=== PATIENT | female | born 1995 | race Caucasian/White ===

== ENCOUNTER 2019-12-12 11:19 | Emergency (ER) | payer OTHER, SELFPAY ==
--- NOTE | 2019-12-12 11:25 | ED.FEMALEGU ---
HPI - Female Genitourinary General Chief complaint: Urogenital-Female Stated complaint: ear pain/irritation and frequency with urination Time Seen by Provider: 12/12/19 11:25 Source: patient and RN notes reviewed History of Present Illness HPI Narrative: Patient is a 24-year-old female who presents the urgent care with complaints of bilateral ear fullness and pain as well as sinus pressure and pain. Patient states that she is also had some bilateral back pain, frequency, urgency and dysuria for the last 3 days. Patient states that 3 days ago she had a low-grade fever of 100.2 Fahrenheit and was asked to leave work. Patient states that she did take Tylenol about 1 time but otherwise not used anything [id number] for her symptoms. Patient denies any upper respiratory symptoms at this time. Denies any nausea or vomiting. No other acute complaints. Patient expressed several times that her work is wanting a release for her to go back to work and that is why she came . Patient is aware that we do not give releases to work. Patient aware of the plan of care. Related Data Home Medications Medication Instructions Recorded Confirmed No Home Medications 12/12/19 12/12/19 Allergies Allergy/AdvReac Type Severity Reaction Status Date / Time No Known Allergies Allergy Unknown Verified 12/12/19 11:36 Review of Systems Review of Systems: Narrative: CONSTITUTIONAL: Denies fever, chills, or sweats. EYES: Denies visual changes, redness, or discharge. ENT: Reports of bilateral otalgia CARDIOVASCULAR: Denies chest pain, palpitations, or edema. RESPIRATORY: Denies cough or dyspnea. GASTROINTESTINAL: Denies abdominal pain, nausea, vomiting, or diarrhea. GENITOURINARY: Reports of urgency, frequency, suprapubic pressure and dysuria SKIN: Denies rash or itching. MUSCULOSKELETAL: Denies back pain, joint pain, or myalgia. NEUROLOGIC: Denies headache, numbness, or weakness. All other systems reviewed are negative, except as documented in HPI. PMFSH Comments At the time of my signature, I reviewed and agree with the nursing past medical, surgical, social, and family history. There is no relevant family history pertinent to the patient complaint. Exam Narrative: Exam Narrative: GENERAL: This is a well-nourished, well-developed patient, in no apparent distress. HEAD: normocephalic, atraumatic. EYES: PERRL. Sclera clear/white. Vision is grossly intact. EARS: External ears normal, auditory canals clear and without drainage,mild fluid noted behind right TM without otitis. bilateral TMs normal without perforation. Hearing grossly intact. NOSE: External nose normal with no obvious nasal discharge, nares without redness, no rhinorrhea. THROAT: Mucous membranes moist, posterior pharynx clear. NECK: Neck supple CARDIOVASCULAR: Regular rate and rhythm without murmurs, gallops, or rubs. RESPIRATORY: Clear to auscultation. Breath sounds equal bilaterally. No wheezes, rales, or rhonchi. GASTROINTESTINAL: Abdomen soft,mild suprapubic tenderness, nondistended. Bowel sounds are active. SKIN: warm, intact with no suspicious lesions or rash, good texture and turgor. NEURO: awake, alert, and oriented to person, place and time. There were no obvious focal neurologic abnormalities. EXTREMITIES: No clubbing, cyanosis, or edema. BACK:mild bilateral CVA tenderness Course Vital Signs Vital signs: Vital Signs Temperature 98.1 F 12/12/19 11:27 Pulse Rate 101 H 12/12/19 11:27 Respiratory Rate 20 12/12/19 11:27 Blood Pressure 139/82 12/12/19 11:27 Pulse Oximetry 99 12/12/19 11:27 Temperature 98.1 F 12/12/19 11:27 Pulse Rate 101 H 12/12/19 11:27 Respiratory Rate 20 12/12/19 11:27 Blood Pressure 139/82 12/12/19 11:27 Pulse Oximetry 99 12/12/19 11:27 Reviewed MDM - Female Genitourinary MDM Narrative Medical decision making narrative: Reviewed lab results with the patient. She is aware that urine analysis was negative. Urin
[2019-12-12 11:27] VITALS: BP 139/82; PULSE 101; RESP 20; TEMP 36.7; O2SAT 99
--- NOTE | 2019-12-12 11:41 | PC.NURSE ---
NO UC ORDERED PER PROVIDER
== END 2019-12-12 11:50 | disposition home or self-care (01) ==
PROVIDERS: Emergency Provider Nurse Practitioner Family; PCP Family Medicine
DX: H92.03 Otalgia, bilateral (principal); R30.0 Dysuria
CPT/HCPCS: 81003; 99212; G0463

== ENCOUNTER 2021-06-29 15:08 | Emergency (ER) | payer OTHER, SELFPAY ==
[2021-06-29 15:45] VITALS: BP 130/93; PULSE 108; RESP 20; TEMP 37.6; O2SAT 100
--- NOTE | 2021-06-29 16:58 | ED.URI ---
HPI - URI/Sore Throat General Chief Complaint: Upper Respiratory Infection Stated Complaint: Sore Throat Time Seen by Provider: 06/29/21 16:54 Source: patient and RN notes reviewed Mode of arrival: ambulatory Limitations: no limitations History of Present Illness HPI Narrative: 26-year-old female presents concern for sore throat, headache that started on June 26. Reports history of strep throat infections. She denies nasal congestion, rhinorrhea, body aches, chills, sweats. Denies known sick contacts. MD elicited complaint: cough and sore throat Related Data Allergies Allergy/AdvReac Type Severity Reaction Status Date / Time No Known Allergies Allergy Unknown Verified 06/29/21 15:43 Review of Systems Review of Systems: CONSTITUTIONAL: Denies malaise, chills, sweats, or fever. EYES: Denies visual changes, redness, or discharge. ENT: Denies rhinorrhea, congestion, sinus pain, otalgia. Reports sore throat. CARDIOVASCULAR: Denies chest pain, palpitations, or edema. RESPIRATORY: Reports cough. Denies dyspnea. GASTROINTESTINAL: Denies abdominal pain, nausea, vomiting, diarrhea SKIN: Denies rash or itching. MUSCULOSKELETAL: Denies myalgia. NEUROLOGIC: Reports headache. All systems reviewed & are unremarkable except as noted in HPI and below PMFSH Comments At time of signature, agree with nursing past medical, surgical, social and family history. There is no relevant family history pertinent to the presenting complaint Exam Narrative: GENERAL: Well-appearing, well-nourished, and in no acute distress. HEAD: Normocephalic EYES: PERRLA, conjunctivae clear ENT: Nares clear. Mucous membranes moist. TM pearly cook with dull light reflex bilaterally; no tragal tenderness. Oropharynx erythematous without lesions. Tonsils not enlarged and without exudate, no drooling, no hoarseness, no trismus, uvula midline. NECK: Supple. No lymphadenopathy CHEST: Clear to auscultation, breath sounds equal. No wheezing, rhonchi, rales, or stridor. No respiratory distress, speaks in full sentences. HEART: Regular rate and rhythm. No murmur heard. SKIN: Warm, dry, no rash. NEURO: Alert and oriented x3. PSYCH: Normal mood and affect Course Course Emergency Course: Patient is aware of diagnosis, understands and agrees to treatment plan. Anticipatory guidance given. Patient agrees to follow-up as directed and is aware of reasons to seek care at the emergency department. Portions of this record may have been created with voice recognition software Vital Signs Vital signs: Vital Signs Temperature 99.6 F 06/29/21 15:45 Pulse Rate 108 H 06/29/21 15:45 Respiratory Rate 20 06/29/21 15:45 Blood Pressure 130/93 H 06/29/21 15:45 Pulse Oximetry 100 06/29/21 15:45 Temperature 99.6 F 06/29/21 15:45 Pulse Rate 108 H 06/29/21 15:45 Respiratory Rate 20 06/29/21 15:45 Blood Pressure 130/93 H 06/29/21 15:45 Pulse Oximetry 100 06/29/21 15:45 Reviewed. Patient has been instructed to follow up with her primary care provider within the next week regarding her elevated blood pressure today. MDM - URI/Sore Throat MDM Narrative Medical decision making narrative: Differential diagnosis considered: Kumar virus, strep pharyngitis, allergic rhinitis, upper respiratory tract infection, sinusitis, rhinosinusitis, nasopharyngitis. viral pharyngitis, otitis media, otitis externa, pneumonia, bronchitis, viral cough syndrome, viral syndrome, and influenza. Exam findings show no acute concerns or changes; patient is non-toxic appearing and is in no distress. Patient is appropriate for outpatient treatment and follow-up. Lab Data Attestation: I reviewed the patient's lab results. Labs: Strep Screen Positive Group A Strep *(Reference Range: Negative)* Critical Care Time Critical Care Time Critical Care Time: No Discharge Plan Discharge Clinical Impression: Acute streptococcal pharyngiti
== END 2021-06-29 17:09 | disposition home or self-care (01) ==
PROVIDERS: Emergency Provider Nurse Practitioner
DX: J02.0 Streptococcal pharyngitis (principal)
CPT/HCPCS: 87880; 99213; G0463

== ENCOUNTER 2024-08-23 10:50 | Emergency (ER) | payer OTHER, SELFPAY ==
--- OUTSIDE RECORDS SUMMARY | 2024-08-23 10:56 | XMS_ITS | Encounter Summary ---
Author Organization [facility] Healthcare Address [address] [place] [address] Care Team Providers Care Card Scraper Name Role Phone Daniel Hendricks MD Primary Care Provider [phone] Reason for Visit * Reason Comments Sinus Problem Entered automaticall y based on patient selection in [employer]. 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 No 07/10/2023 Humiliation, Afraid, Rape, and Kick questionnair e Answer Date Recorded Within the last year, have y ou been afraid of your partner or ex-partner? No 07/10/2023 Within the last year, have y ou been humiliated or emotionally abused in other ways by your partner or ex-partner? No Within the last year, have y ou been kicked, hit, slapped, or otherwise physically hurt by your partner or ex-partner? No 07/10/2023 Within the last year, have y ou been raped or forced to have any kind of sexual activity by your partner or ex-partner? No 07/10/2023 Social Connection and Isolat ion Panel [NHANES] Answer Date Recorded In a typical week, how many times do you talk on the phone with family, friends, or neighbors? More than three times a week 07/10/2023 How often do you get togethe r with friends or relatives? More than three times a week 07/10/2023 How often do you attend chur or uatsdin services? Never 07/10/2023 Do you belong to any clubs o r organizations such as lutheran groups, unions, fraternal or athletic groups, or school groups? No 07/10/2023 How often do you attend meet ings of the clubs or organizations you belong to? Never 07/10/2023 Are you , , di vorced, , never , or living with a partner? Living with partner 07/10/2023 AUDIT-C Answer Date Recorded Q1: How often do you have a drink containing alc ohol? Monthly or less 07/10/2023 Q2: How many drinks containi ng alcohol do you have on a typical day when you are drinking? 1 or 2 07/10/2023 Q3: How often do you have si x or more drinks on one occasion? Less than monthly 07/10/2023 Overall Financial Resource Strain (CARDIA) Answe r Date Recorded How hard is it for you to pa y for the very basics like food, housing, medical care, and heating? Not hard at all 07/10/2023 PHQ-2 Answer Date Recorded PHQ-2 Total Score (If total score is 3 or more points, staff should administer the PHQ-9) 0 01/28/2024 [facility] Occup[facility] ional [facility] - Occupational Stress Questionnaire Answer Date Recorded Do you feel stress - tense, restless, nervous, or anxious, or unable to sleep at night because your mind is troubled all the time - these days? To some extent 07/10/2023 Exercise Vital Sign Answer Date Recorde d On average, how many days pe r week do you engage in moderate to strenuous exercise (like a brisk walk)? 7 days 07/10/2023 On average, how many minutes do you engage in exercise at this level? 20 min 07/10/2023 Hunger Vital Sign Answer Date Recorded Within the past 12 months, y ou worried that your food would run out before you got the money to buy more. Never true 07/10/19 24 Within the past 12 months, t he food you bought just didn't last and you didn't have money to get more. Never true 07/10/2023 PRAPARE - Transportation Answer Date Re corded In the past 12 months, has l ack of transportation kept you from medical appointments or from getting medications? No 03/2024 In the past 12 months, has l ack of transportation kept you from meetings, work, or from getting things needed for daily living? No 07/10/2023 Housing Stability Vital Sign Answer Jovani e Recorded In the last 12 months, was t here a time when you were not able to pay the mortgage or rent on time? No 07/10/2023 In the last 12 months, how many places have you lived? 1 07/10/2023 In the last 12 months, was t here a time when you did not have a steady place to sleep or slept in a custodial (including now)? 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 The patient-submitted questionnaire was assessed for pertinent information and the patient's problem list, medication list, and allergies were reviewed as part of the e-visit. The chart was updated to identify any changes in these areas. Assessment: No diagnosis found. Plan: The patient was given information regarding any new medication(s) prescribed, if applicable, as well as any [id number] remedies. She was given instructions regarding follow up and timeframe if symptoms worsen or don???t improve. These instructions were included in the [employer] message reply tothe patient. Patient Instructions were included in the message reply to patient. My total encounter time on 08/23/2024 was 5 minutes which was spent in the activities documented inthe note. Ronel Duffy NP TERY LABORER documented in this encounter Plan of Treatment Not on file documented as of this encounter Visit Diagnoses Not on filedocumented in this encounter Care Teams Card Scraper Relationship Specialty Start Date End [place] [address] PCP - General 10/30/21 documented as of this encounter
--- OUTSIDE RECORDS SUMMARY | 2024-08-23 10:56 | XMS_ITS | Clinical Summary ---
Author Organization [facility] Address [address] [place] [address] Care Team Providers Care General Internal Medicine Physician Name Role Phone Daniel English MD Primary Care Provider [phone] Allergies Active Allergy Reactions Criticality Noted Date Comments Amoxicillin-Pot Clavulanate Rash Medium 07/25/19 24 Clavulanate Medications busPIRone (BUSPAR) 5 mg tabletIndications :Generalized Anxiety Disorder Take 1 tablet (5 mg total) by mouth 3 (three) times a day 90 tablet 1 023 Active ipratropium-albut Sloan (DUO-NEB) 0.5-2.5 mg/3 mL nebulizer solutionIndicatio ns:Chronic Obstructive Pulmonary Disease with Bronchospasms Take 3 mL by nebulization 4 (four) times a day as needed for wheezing or shortness of breath 90 mL 11 023 Active ergocalciferol (VITAMIN D) 50,000 unit capsuleIndication s:Vitamin D deficiency Take 1 capsule (50,000 Units total) by mouth once a week 12 capsule 4 024 Active cetirizine (ZyrTEC) 10 mg tabletIndications :Chronic Idiopathic Urticaria Take 1 tablet (10 mg total) by mouth 2 (two) times a day 60 tablet 11 024 Active famotidine (PEPCID) 20 mg tabletIndications :Chronic idiopathic urticaria Take 1 tablet (20 mg total) by mouth 2 (two) times a day 60 tablet 11 024 2024 Active dicyclomine (BENTYL) 10 mg capsuleIndication s:Irritable bowel syndrome with diarrhea Take 1 capsule (10 mg total) by mouth 4 (four) times a day before meals and nightly 360 capsule 024 2024 Active promethazine-DM (PROMETHAZINE-DM) 1.25-3 mg/mL syrupIndications: Allergic Rhinitis Take 5-10 mL by mouth 4 (four) times a day as needed for cough 120 mL 024 Active fluticasone propion-salmetero L (ADVAIR DISKUS) 250-50 mcg/dose diskus inhalerIndication s:Mild intermittent reactive airway disease with wheezing with acute exacerbation Inhale 1 puff 2 (two) times a day Rinse mouth with water after use. Do not swallow. 180 each 3 024 2024 Active fluticasone propionate (FLONASE) 50 mcg/actuation nasal sprayIndications: Allergic rhinitis due to dust mite Administer 2 sprays into each nostril daily 16 g 3 024 2024 Active metFORMIN XR (GLUCOPHAGE XR) 500 mg 24 hr tablet TAKE 1 TABLET(500 MG) BY MOUTH TWICE DAILY WITH MEALS 90 tablet 1 024 Active clonazePAM (KlonoPIN) 1 mg tabletIndications :RONNI (generalized anxiety disorder) TAKE 1 TABLET(1 MG) BY MOUTH TWICE DAILY 60 tablet 2 025 Active prochlorperazine (COMPAZINE) 10 mg tablet Take 1 tablet (10 mg total) by mouth 3 (three) times a day as needed for nausea or vomiting 9 tablet 025 Active albuterol HFA (PROVENTIL HFA,VENTOLIN HFA,PROAIR HFA) 90 mcg/actuation inhalerIndication s:Mild intermittent reactive airway disease without complication INHALE 2 PUFFS BY MOUTH EVERY 6 HOURS NEEDED FOR WHEEZING OR SHORTNESS OF BREATH 18 g 025 Active diphenoxylate-atr opine (LOMOTIL) 2.5-0.025 mg per tabletIndications :diarrhea Take 2 tablets in the morning, and then one tablet with each additional stool every 8 hours for a total of 4 tablets per day. 180 tablet 3 025 Active montelukast (SINGULAIR) 10 mg tabletIndications :Mild intermittent reactive airway disease with wheezing with acute exacerbation Take 1 tablet (10 mg total) by mouth nightly 90 tablet 4 025 2025 Active ondansetron ODT (ZOFRAN-ODT) 4 mg disintegrating tablet Take 1 tablet (4 mg total) by mouth every 8 (eight) hours as needed for nausea or vomiting 20 tablet 025 Active montelukast (SINGULAIR) 10 mg tabletIndications :Mild intermittent reactive airway disease with wheezing with acute exacerbation Take 1 tablet (10 mg total) by mouth nightly 90 tablet 4 023 2024 Discontinued(R eorder) ondansetron ODT (ZOFRAN-ODT) 4 mg disintegrating tablet Take 1 tablet (4 mg total) by mouth every 8 (eight) hours as needed for nausea or vomiting 12 tablet 2 024 2024 Discontinued(T herapy completed) diphenoxylate-atr opine (LOMOTIL) 2.5-0.025 mg per tabletIndications :diarrhea Take 2 tablets in the morning, and then one tablet with each additional stool every 8 hours for a total of 4 tablets per day. 180 tablet 3 024 2024 Discontinued(R eorder) albuterol HFA (PROVENTIL HFA,VENTOLIN HFA,PROAIR HFA) 90 mcg/actuation inhalerIndication s:Mild intermittent reactive airway disease without complication INHALE 2 PUFFS BY MOUTH EVERY 6 HOURS NEEDED FOR WHEEZING OR SHORTNESS OF BREATH 18 g 025 2024 Discontinued Active Problems Problem Noted Date Diagnosed Date PCOS (polycystic ovarian syndrome) 01/18/2024 Assessment & Plan (01/18/2024 1:17 PM CDT): Recently diagnosed by OB Metformin 500 mg daily; tolerating well-takes at night Severe persistent asthma without complication Fatigue 07/10/2023 Assessment & Plan (07/10/2023 2:28 PM SALES PROJECT ENGINEER): Increased fatigue; states that she can nap for hours; can drink energy drink and go straight to sleep Reactive airway disease with wheezing 05/30/2023 Assessment & Plan (05/31/2023 12:46 PM SALES PROJECT ENGINEER): Exacerbation with wheezing Restart singulair and advair Order for nebulizer and duoneb Nebulizer treatment given in office; patient expressed relief with treatment History of asthma in childhood which required nebulizer treatments. Menses, irregular 01/27/2023 RONNI (generalized anxiety disorder) 07/25/2022 Assessment & Plan (01/18/2024 1:19 PM CDT): Chronic, well controlled Continue Klonopin 1 mg BID and BuSpar 5 mg TID PRN Rarely uses BuSpar Assessment & Plan (07/10/2023 2:33 PM SALES PROJECT ENGINEER): Stable, well controlled Continue Konopin 1 mg bid prn and BuSpar 5 mg tid prn Has not taken BuSpar regularly Assessment & Plan (05/07/2023 5:20 PM SALES PROJECT ENGINEER): Stable, generally well controlled Continue Klonopin 1 mg bid prn Add buspar 5 mg tid prn Assessment & Plan (03/07/2023 2:42 PM CDT): Stable, well controlled; patient reports she has some stressors including moving and recent loss of job; however reports some improvement given no longer and stressful work environment Continue Klonopin 1 mg b.i.d. p.r.n. for severe anxiety Continue to work on nonmedical coping mechanisms Assessment & Plan (10/06/2022 4:43 PM CDT): Can focus more at work; but no other relief through the day; has had some relief with stomach pain Has been trying to increase exercise, yoga and going on walks No current individual therapy Encouraged patient to engage with individual therapy Increase Klonopin 1 mg b.i.d. Assessment & Plan (08/31/2022 4:06 PM SALES PROJECT ENGINEER): Not well controlled; patient has been on 6 antidepressants in the past; no relief in worsening symptoms with bupropion 150 mg daily Given prior failures with SSRIs, SNRIs and atypical antidepressants; will start Klonopin 0.5 mg b.i.d. Assessment & Plan (07/25/2022 4:11 PM SALES PROJECT ENGINEER): Worsening anxiety, causing significant distress and triggering depression for patient Start bupropion 150 mg daily Irritable bowel syndrome with diarrhea 8 Assessment & Plan (01/18/2024 1:18 PM CDT): Chronic, stable, well controlled Continue Dicyclomine 10 mg QID and Lomotil on days she works Assessment & Plan (07/10/2023 2:37 PM SALES PROJECT ENGINEER): Stable, generally improving Continue dicyclomine 10 mg and Lomotil Assessment & Plan (10/06/2022 4:42 PM CDT): Mildly improving; has daily diarrhea but decreased frequency stool; patient reports fewer stomach cramps Fewer days of missed appointments Continue dicyclomine 10 mg q.i.d.; Lomotil Daily Assessment & Plan (08/31/2022 4:06 PM SALES PROJECT ENGINEER): Continues to have diarrhea; worsened today; follows with Endocrinology Continue Lomotil p.r.n. for diarrhea Encouraged patient to work towards low FODMAP diet; follow-up with Allergy immunology to evaluate for possible food allergies as exacerbations of current symptoms Assessment & Plan (07/25/2022 4:10 PM SALES PROJECT ENGINEER): Continues to have episodes of diarrhea, colonoscopy is negative for any significant disease of colonoscopy, has burning sensation stomach, hot flashes at night, waking drenched in sweat; working on low FODMAP diet Continue Bentyl 10 mg q.i.d.; pantoprazole 40 mg daily, cholesterol 1 g b.i.d., cyclobenzaprine 5 mg t.i.d. Will continue to evaluate for other causes; given hot flashes at night; may also consider urine testing for metabolites of serotonin for possible serotonin syndrome; though no evidence of any tumors If night sweats continue, would also follow-up with labs for autoimmune and inflammatory causes of night sweats Assessment & Plan (05/15/2022 10:55 AM SALES PROJECT ENGINEER): Not well controlled, worsening; patient reports increased anxiety and stress Having diarrhea, rebound per day, can spent at least 20 minutes in the bathroom evacuating bowels; watery in by M[place]onnell consistency to stool Patient has been working on some dietary changes, but continues to high fat meals; encouraged patient to work on low-fat meals given history of cholecystectomy Will start colestipol 1 g b.i.d., dicyclomine 10 mg with meals for abdominal pain and cramping Referral to GI B12 deficiency 04/01/2018 Assessment & Plan (01/18/2024 1:16 PM CDT): Has been taking OTC B12 Labs ordered Hyperglycemia 04/01/2018 Assessment & Plan (03/07/2023 2:43 PM CDT): Noticed significant hyperglycemia; blood sugar and pre diabetes range; encouraged patient continue to work on low-carbohydrate diet Hyperlipidemia 04/01/2018 Assessment & Plan (01/18/2024 1:16 PM CDT): Labs ordered Assessment & Plan (10/06/2022 4:41 PM CDT): Elevated triglycerides; encouraged patient to work on dietary changes to reduce processed sugar was Vitamin D deficiency 04/01/2018 Assessment & Plan (01/18/2024 1:17 PM CDT): Chronic Taking Vitamin D Labs ordered Class 3 severe obesity with serious comorbidity and body mass index (BMI) of 40.0 to 44.9 in adult 01/01/2018 Assessment & Plan (01/18/2024 1:18 PM CDT): Weight stable Still working on diet and exercise Assessment & Plan (07/10/2023 2:39 PM SALES PROJECT ENGINEER): Mild increase; still trying to focus on weight loss She is having increased fatigue that it is making it hard to exercise. Assessment & Plan (07/10/2023 2:38 PM SALES PROJECT ENGINEER): >>ASSESSMENT AND PLAN FOR CLASS 2 OBESITY DUE TO EXCESS CALORIES WITHOUT SERIOUS COMORBIDITY WITH BODY MASS INDEX (BMI) OF 37.0 TO 37.9 IN ADULT WRITTEN ON 03/07/2023 2:42 PM BY DANIEL ENGLISH MD Stable, improving; patient reports she is been focusing in weight loss; making dietary changes, reducing caloric intake through reducing high-calorie foods in watching portion control Patient reports regular physical activity Continue to encourage dietary and activity changes to help with weight loss Resolved Problems Problem Noted Date Diagnosed Date Resolved Date Diverticulosis 07/13/2022 01/18/2024 Diarrhea 07/13/2022 01/18/2024 Abdominal cramping 07/13/2022 4 Abdominal bloating 07/13/2022 4 Nausea and vomiting 07/13/2022 01/18/20 24 Urticaria 08/01/2021 01/18/2024 Encounters Date Type Department Care Team Description 08/23/2024 9:10 AM SALES PROJECT ENGINEER E-Visit [facility] Medical [facility] [address] [place] [phone] Ronel Duffy NP E-Visit for Sinus 08/23/2024 Patient Self-Triage [facility] [address] [place] [phone] Mychart, Generic Provider 08/20/2024 8:50 AM SALES PROJECT ENGINEER E-Visit [address] [phone] Reanna Eubanks NP E-Visit for Diarrhea 08/20/2024 Patient Self-Triage [facility] [address] [place] [phone] Mychart, Generic Provider 07/28/2024 11:00 AM SALES PROJECT ENGINEER Therapy [facility] [address] [place], [place] [phone] Yamile Schwartz LCSW RONNI (generalized anxiety disorder) [F41.1] (Primary Dx) 07/23/2024 9:30 AM SALES PROJECT ENGINEER E-Visit [address] [phone] Megan Joiner NP E-Visit for Diarrhea 07/23/2024 Patient Self-Triage [facility] [address] [place] [phone] Torsten, Generic Provider 07/07/2024 11:00 AM SALES PROJECT ENGINEER Therapy [facility] [address] [place], [place] [phone] Yamile Schwartz LCSW RONNI (generalized anxiety disorder) [F41.1] (Primary Dx) 07/04/2024 Telephone [facility] [address] [phone] Daniel English MD Prednisone Clarification 06/09/2024 Telephone [facility] [address] [phone] Zandra Bell NP 06/05/2024 11:55 AM SALES PROJECT ENGINEER Lab [facility] [address] [place] [address] PCOS (polycystic ovarian syndrome); Irregular menstrual cycle 05/26/2024 11:00 AM SALES PROJECT ENGINEER Therapy [facility] [address] [place], [place] [phone] Yamile Schwartz LCSW Anxiety and depression [F41.9, F32.A] (Primary Dx) from Last 3 Months Immunizations Immunization Administration Dates Next Due DTP 10/31/2001, 2,03/07/2001,03/07,10/25/1996,10/25/1996,1995 ,1995 Hep A, Pediatric 02/20/2006,02/20/2006 Hep A, Unspecified 02/28/2010,02/28/2010 Hep B, Adolescent or Pediatric 1,03/07/2001,1995,04/25,1995,1995 HiB 10/25/1996,199 7,1995,08/08 IPV 03/07/2001, 1,10/25/1996,10/25,1995,1995 Influenza, Quadrivalent, Spl it, Preservative Free, Intramuscular 07/20/2022 Influenza, Unspecified 03/07/2023(Deferred: Denia ent Refused) MMR 03/07/2001, 1,10/25/1996,10/25 Meningococcal MCV4P (Menactra) 2,03/20/2012,02/28/2010,02/28 Pneumococcal Polysaccharide PPV23 09/27/2023 Tdap 01/18/2017, 7,02/20/2006,02/20 Surgical History Surgery Date Site/Laterality Comments CHOLECYSTECTOMY Cholecystectomy COLONOSCOPY 07/18/2022 Medical History Medical History Date Comments Anxiety Depression Asthma Childhood GERD (gastroesophageal reflux disease) Menstrual problem Food intolerance Urticaria Allergic rhinitis Diverticulosis 07/13/2022 Family History Medical History Relation Name Comments Hyperlipidemia Father Celio gutierrez Hyperlipidemi a; Hypertension Father Celio gutierrez Hypertension; Breast cancer Father's Sister Cancer, familia ast; Lung cancer Maternal Grandfather Cancer, lung; Asthma Mother Clarisse Gutierrez Asthma; Diabetes Mother Clarisse Gutierrez Diabetes valentin itus; Hyperlipidemia Paternal Grandfather Chance gutierrez Hyper lipidemia; Relation Name Status Comments Father Celio gutierrez Father's Sister Maternal Grandfather Mother Clarisse Gutierrez Paternal Grandfather Chance gutierrez Social History Tobacco Use Types Packs/Day Years Used Date Smoking Tobacco: Never Smokeless Tobacco: Never Alcohol Use Standard Drinks/Week Comments No 0 (1 standard drink = 0.6 oz pur e alcohol) [facility] Utilities Answer Date Recorded In the past 12 months has [facility] [employer], oil, or water [employer] threatened to shut off services in your [...] How often do you attend chur or congregational services? Never 07/10/2023 Do you belong to any clubs o r organizations such as mormon groups, unions, fraternal or athletic groups, or [...] staff should administer the PHQ-9) 0 01/28/2024 [facility] [place] of Occupat ional Health - Occupational Stress [...] place to sleep or slept in a senior care (including now)? No 07/10/2023 Personal Safety Answer Date Recorded Getting School Help Needed Denies 06/16 Comments No Sex and Gender Information Value Date Recorded Sex Assigned at Not on file Legal Sex Female 1:33 PM SALES PROJECT ENGINEER Gender Identity Not on file Sexual Orientation Straight 03/09/2021 11 :40 PM CDT Occupation Industry Job Start Date Job End Date Full Stack Engineer at [employer] Not on file Not on file Not on file Obstetrics History Para Term AB IAB SAB Ectopic Multiple Livin g Live Births 0 0 0 0 0 0 0 0 0 0 0 Last Filed Vital Signs Vital Sign Reading Time Taken Comments Blood Pressure 118/72 04/25/2024 3:52 PM CDT Pulse 97 04/25/2024 3:52 PM CDT Temperature 37.1 C (98.7 F) 04/25/2024 3:52 PM CDT Respiratory Rate 16 04/25/2024 3:52 PM CDT Oxygen Saturation 97% 04/25/2024 3:52 PM CDT Inhaled Oxygen Concentration - - Weight 95.3 kg (210 lb) 04/25/2024 3:52 PM CDT Height 154.9 cm (5' 1 ) 04/25/2024 3:52 PM CDT Body Mass Index 39.68 04/25/2024 3:52 PM CDT Plan of Treatment Health Maintenance Due Date Last Done Comments Varicella Vaccines (1 of 2 - 13+ 2-dose series) 2008 Covid-19 Vaccine (3 - season) 2024 04/03/2021, 03/13/2021 Influenza Vaccine (#1) 2024 07/20/2022 Pneumococcal vaccine <65 (2 of 2 - PCV) 09/26/2024 09/27/2023 Cervical Cancer Screening 01/27/20252023, 01/23/2023, 03/10/2021, Additional history exists Depression Screening 01/27/2025 01/28/2024, 01/18/2024, 07/10/2023, Additional history exists Regular Well Visit/Exam 18-64 01/27/2025 01/28/2024, 01/18/2024, 01/23/2023, Additional history exists DTaP/Tdap/Td Vaccine (9 - Td or Tdap) 01/18/2027 01/18/2017, 01/18/2017, 02/20/2006, Additional history exists Hepatitis B Screening Completed 03/07/2001 , 03/07/2001, 1995, Additional history exists Hepatitis C Screening Completed 07/13/2022 HPV Vaccines Aged Out No longer eligi ble based on patient's age to complete this topic Procedures Procedure Name Priority Date/Time Associated Diagnosis Comments EGFR Routine 06/05/2024 11:55 AM SALES PROJECT ENGINEER PCOS (polycystic ovarian syndrome) Irregular menstrual cycle COMPREHENSIVE METABOLIC PANEL Routine 06/05/2024 11:55 AM SALES PROJECT ENGINEER PCOS (polycystic ovarian syndrome) Irregular menstrual cycle INSULIN, TOTAL Routine 06/05/2024 11:55 AM SALES PROJECT ENGINEER PCOS (polycystic ovarian syndrome) Irregular menstrual cycle DHEA-SULFATE Routine 06/05/2024 11:55 AM SALES PROJECT ENGINEER PCOS (polycystic ovarian syndrome) Irregular menstrual cycle TOTAL TESTOSTERONE Routine 06/05/2024 11 :55 AM SALES PROJECT ENGINEER PCOS (polycystic ovarian syndrome) Irregular menstrual cycle FOLLICLE STIMULATING HORMONE Routine 06/05/2024 11:55 AM SALES PROJECT ENGINEER PCOS (polycystic ovarian syndrome) Irregular menstrual cycle LUTEINIZING HORMONE (LH) Routine 06/05/2024 11:55 AM SALES PROJECT ENGINEER PCOS (polycystic ovarian syndrome) Irregular menstrual cycle PAP, REFLEX HPV Routine 01/28/2024 3:45 PM CDT Well woman exam HEPATITIS PANEL, ACUTE Routine 3 3:08 PM SALES PROJECT ENGINEER Hepatic steatosis from Last 3 Months or Most Recently Relevant to Health Maintenance Results * eGFR (06/05/2024 11:55 AM SALES PROJECT ENGINEER) eGFR >90 >=60 mL/min/1. 73 m2 Comment: Interpretive Data Reference Interval Normal >/= 90 mL/min/1.73m2 Mildly decreased* 60 - 89 mL/min/1.73m2 Mildly to moderately decreased 45 - 59 mL/min/1.73m2 Moderately to severely decreased 30 - 44 mL/min/1.73m2 Severely decreased 15 - 29 mL/min/1.73m2 Kidney Failure < 15 mL/min/1.73m2 *Relative to young adult level Estimated glomerular filtration rate is determined by the 2020 CKD-EPI equation recommended by the National Kidney Foundation (A Unifying Approach to GFR Estimation: Recommendations of the NKF-ASK Task Force on Reassessing the Inclusion of Race in Diagnosing Kidney Disease, JASN 2020). The CKD-EPI equation should not be used for patients with unstable renal function and has not been validated in children and those over 70. Current interpretive data was last reviewed 2021. Testing performed by: [facility], [id number] [place] [address], [place]., [address] Blood 06/05/2024 11:5 5 AM SALES PROJECT ENGINEER 06/05/2024 6:54 PM SALES PROJECT ENGINEER us Kristine Moura NP LAB BLOOD ORDERABLES Final Resul t Performing Organization Address [facility] Co de Phone Number [facility] (SWISHER) [address] [facility] [place] [address] * Insulin, total (06/05/2024 11:55 AM SALES PROJECT ENGINEER) Insulin 21.4 2.6 - 25.0 mcIUnit/mL Comment:Testing performed by : [facility], [address] [place] [address]., [id number] Blood 06/05/2024 11:5 5 AM SALES PROJECT ENGINEER 06/06/2024 1:00 AM SALES PROJECT ENGINEER us Kristine Moura NP LAB BLOOD ORDERABLES Final Resul t Performing Organization Address [facility] de Phone Number [facility] (SWISHER) [address] [facility] [place] [address] * DHEA-sulfate (06/05/2024 11:55 AM SALES PROJECT ENGINEER) DHEA-S 142.0 98.8 - 340.0 mcg/dL Comment:Testing performed by : [facility], [address] [place] [address], [id number] Blood 06/05/2024 11:5 5 AM SALES PROJECT ENGINEER 06/06/2024 1:00 AM SALES PROJECT ENGINEER us Kristine Moura NP LAB BLOOD ORDERABLES Final Resul t Performing Organization Address [facility] Co de Phone Number [facility] (SWISHER) [address] [facility] [place] [address] * Total testosterone (06/05/2024 11:55 AM SALES PROJECT ENGINEER) Testosterone 30 8 - 48 ng/dL Comment:Testing performed by : [facility], [address] [place] [address], [place]., [address] Blood 06/05/2024 11:5 5 AM SALES PROJECT ENGINEER 06/05/2024 6:11 PM SALES PROJECT ENGINEER us Kristine Moura NP LAB BLOOD ORDERABLES Final Resul t [facility] (SWISHER) [address] [place] [address] [place] [address] * LH (06/05/2024 11:55 AM SALES PROJECT ENGINEER) LH 9.8 IUnits/L Comment: Interpretive Data Males: Adults: 1.7 - 8.6 IUnits/L Females: Follicular: 2.4 - 12.6 IUnits/L Ovulation: 14.0 - 95.6 IUnits/L Luteal: 1.0 - 11.4 IUnits/L Postmenopausal: 7.7 - 58.5 IUnits/L Current interpretive data was last revised on 2018. Testing performed by: [facility], [address] [place] [address], [id number] Blood 06/05/2024 11:5 5 AM SALES PROJECT ENGINEER 06/06/2024 1:00 AM SALES PROJECT ENGINEER Kristine Moura NP LAB BLOOD ORDERABLES Final Resul t Performing Organization Address [facility] Co de Phone Number [facility] (SWISHER) [address] [place] [phone] * Follicle stimulating hormone (06/05/2024 11:55 AM SALES PROJECT ENGINEER) FSH 6.0 IUnits/L Comment: Interpretive Data Male: Adults: 1.5 - 12.4 IUnits/L Female: Follicular: 3.5 - 12.5 IUnits/L Ovulation: 4.7 - 21.5 IUnits/L Luteal: 1.7 - 7.7 IUnits/L Postmenopausal: 25.8 - 134.8 IUnits/L Current interpretive data was last revised 2015. Testing performed by: [facility], [address] [place] [address]., [id number] Blood 06/05/2024 11:5 5 AM SALES PROJECT ENGINEER 06/06/2024 1:00 AM SALES PROJECT ENGINEER us Krsitine Moura NP LAB BLOOD ORDERABLES Final Resul t [facility] (EULOGIO) 1 [facility] [place] [address] * (ABNORMAL) Comprehensive metabolic panel (06/05/2024 11:55 AM SALES PROJECT ENGINEER) Sodium 141 135 - 145 mmol/L Comment:Testing performed by : [address] [address] Potassium, pl 4.0 3.3 - 4.9 mmol/L [facility] (EULOGIO) Comment:Testing performed by : [address] [address] Chloride 104 97 - 110 mmol/L [facility] (EULOGIO) Comment:Testing performed by : [address], [address] CO2 26 22 - 32 mmol/L [facility] (EULOGIO) Comment:Testing performed by : [address], [address] Anion gap 11 2 - 15 mmol/L [facility] (EULOGIO) Comment:Testing performed by : [address] [address] BUN 7 6 - 25 mg/dL [facility] (EULOGIO) Comment:Testing performed by : [address], [address] Creatinine 0.51(L) 0.60 - 1.10 mg/dL [facility] (EULOGIO) Comment:Testing performed by : [address], [address] Glucose 98 70 - 199 mg/dL [facility] (EULOGIO) Comment: Interpretive Data Fasting glucose >/= 126 mg/dl is diagnostic for diabetes. Fasting is defined as no caloric intake for at least 8 hours. Fasting glucose between 100 mg/dl to 125 mg/dl is diagnostic of prediabetes. In a patient with classic symptoms of hyperglycemia or hyperglycemic crisis, a random glucose >/= 200 mg/dl is diagnostic for diabetes. In the absence of unequivocal hyperglycemia, results should be confirmed by repeat testing. The classification and Diagnosis of Diabetes Diabetes Care 2021; 46: S19-S40. Current interpretive data was last revised 2022. Testing performed by: [facility], [address] [place] [address]., [id number] Calcium 9.3 8.5 - 10.3 mg/dL [facility] ([facility]OG[facility]) Comment:Testing performed by : [address], [address] Bilirubin, total 0.2 0.1 - 1.2 mg/dL [facility] ([facility]) Comment:Testing performed by : [facility], [address] [place] [address], [address] Protein, pl 7.0 6.5 - 8.5 g/dL [facility] ([facility]) Comment:Testing performed by : [facility], [address] [place] [address], [address] Albumin 4.3 3.5 - 5.0 g/dL [facility] ([facility]) Comment:Testing performed by : [facility], [address] [place] [address], [address] Alk phos 100 40 - 130 Units/L [facility] ([facility]) Comment:Testing performed by : [facility], [address] [place] [address], [address] ALT 26 7 - 45 Units/L [facility] ([facility]) Comment:Testing performed by : [facility], [address] [place] [address], [address] AST 23 10 - 45 Units/L [facility] ([facility]) Comment:Testing performed by : [address], [address] Blood 06/05/2024 11:5 5 AM SALES PROJECT ENGINEER 06/05/2024 6:11 PM SALES PROJECT ENGINEER us Kristine Moura NP LAB BLOOD ORDERABLES Final Resul t [facility] ([facility]) 1 [facility] Department [place] [address] * Pap, reflex HPV (01/28/2024 3:45 PM CDT) Pathologist [facility] CLINICAL INFORMATION: CatglobeWaleskaSavana Carlton Comment:Routine exam LMP Mary HernandezWaleskaSavana Carlton Comment:[id number] Previous Pap Mary HernandezWaleskaSavana isaac Brandt Comment:None given Prev. Bx Mary Carlton Comment:None given SOURCE: Mary Carlton Comment:Cervix, Endocervix Pap, specimen adequacy Mary RiggsSavana isaac Brandt Comment: Satisfactory for evaluation. Endocervical/transformation zone component present. HPV interp Mary Carlton Comment: Cytology Results: Negative for intraepithelial lesion or malignancy. COMMENTS Mary HernandezArchie Carlton Comment: This Pap test has been evaluated with computer assisted technology. Rehabilitation Counselor Darrell Malhotra Comment: BKA, CT(ASCP) CT screening location: [place] [address] [address] [address] Review properties supervisor Mary Carlton Comment: MVB, CT(ASCP) CT Screening Location: [place] [address] [address] [place] [address] Comment Mary Carlton Comment: EXPLANATORY NOTE: The Pap is a screening test for cervical cancer. It is not a diagnostic test and is subject to false negative and false positive results. It is most reliable when a satisfactory sample, regularly obtained, is submitted with relevant clinical findings and history, and when the Pap result is evaluated along with historic and current clinical information. Thin prep 01/28/2024 3:45 PM CDT 01/29/2024 4:54 AM CDT Kristine Moura WATER PLANT PUMP OPERATOR LAB CYTOLOGY ORDERABLES Final Re sult [facility] Mary HernandezMary [address] [place] [address] * Hepatitis panel, acute (07/13/2022 3:08 PM SALES PROJECT ENGINEER) Hep A IgM Nonreactive Nonreactive [facility] (EULOGIO) Comment: Interpretive Data: If Hep A IgM Ab is reported as Equivocal, a new sample should be drawn in two weeks for testing. Current interpretive data was last revised on 19. Testing performed by: [facility], [address] [place] [address], [place]., [address] Hep B core IgM Nonreactive Nonreactive Cely [facility] (EULOGIO) Comment: Interpretive Data If HepB Core IgM Ab is reported as Equivocal, a new sample should be drawn in two weeks for testing. Current interpretive data was last revised on 19. Testing performed by: [address] [address] Hep C Ab Nonreactive Nonreactive [facility] (EULOGIO) Comment: Interpretive Data Nonreactive: Antibodies to HCV not detected. Does NOT exclude the possibility of recent exposure to HCV. Equivocal: Equivocal for HCV antibodies. Supplemental molecular testing will be automatically performed to determine infection status in accordance with current CDC screening recommendations. Reactive: Positive for HCV antibodies. This may represent current or past HCV infection. Supplemental molecular testing will be automatically performed to determine current infection status in accordance with current CDC screening recommendations. Interpretive data was last revised on 2019. Testing performed by: [facility], [address] [place] [address]., [address] HepBsAg Nonreactive Nonreactive [facility] (EULOGIO) Comment:Testing performed by : [address] [address] Blood 07/13/2022 3:08 PM SALES PROJECT ENGINEER 07/13/2022 8:14 PM SALES PROJECT ENGINEER Elke HER LAB MICROBIOLOGY - GENER AL ORDERABLES Final Result [facility] (EULOGIO) 1 [facility] [place] [address] from Last 3 Months or Most Recently Relevant to Health Maintenance Insurance [facility] Member Subscriber Plan / Payer (Ef fective 2021-Present) Name:Radha Gutierrez Relation to Subscriber:Self Name:Radha Gutierrez Payer ID:[id number] (NAIC) Group ID:Not on file Type:MEDICAID [id number] OTHER Address: ATTN: CLAIMS DEPT [address] [place] [phone] Advance Directives For more information, please contact: [phone] * Full Code (Latest Code Status on File) Date Activated Date Inactivated Comments 08/29/2022 12:04 PM 08/29/2022 7:21 PM * Full Code Date Activated Date Inactivated Comments 08/29/2022 12:04 PM 08/29/2022 12:04 PM * Full Code Date Activated Date Inactivated Comments 07/18/2022 12:00 PM 07/18/2022 7:37 PM * Full Code Date Activated Date Inactivated Comments 07/18/2022 11:59 AM 07/18/2022 11:59 AM Care Teams General Internal Medicine Physician Relationship Specialty Start Date End Date Daniel English MD [address] [place] [address] PCP - General 10/30/21
--- OUTSIDE RECORDS SUMMARY | 2024-08-23 10:56 | XMS_ITS | Encounter Summary ---
Author Organization [facility] Healthcare Address [address] [place] [address] Care Team Providers Care Barrel Rifler Button Name Role Phone Daniel Hendricks MD Primary Care Provider [phone] Encounter Details Date Type Department Care Team (Late st Contact Info) Description 08/23/2024 Patient Self-Triage [facility] HealthCare/ Physicians [address] [place] [address] [place], [facility] Provider [address] [place], [place] [id number] Social History Tobacco Use Types Packs/Day Years Used Date Smoking Tobacco: Never Smokeless Tobacco: Never Alcohol Use Standard Drinks/Week Comments No 0 (1 standard drink = 0.6 oz pur e alcohol) [facility] Utilities Answer Date Recorded In the past 12 months has e [facility], gas, oil, or water echoecho threatened to shut off services in your [...] 07/10/2023 How often do you attend chur ch or zoroastrianism services? Never 07/10/2023 Do you belong to any clubs o r organizations such as zoroastrianism groups, unions, fraternal or athletic groups, or [...] staff should administer the PHQ-9) 0 01/28/2024 [facility] of Occupat ional [facility] - Occupational Stress Questionnaire Answer Date Recorded [...] place to sleep or slept in a halfway (including now)? 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
--- OUTSIDE RECORDS SUMMARY | 2024-08-23 10:56 | XMS_ITS | Referral Summary ---
Author Organization [facility] Address [address] [place] [address] Care Team Providers Care Heel Stiffener Name Role Phone Daniel English MD Primary Care Provider [phone] Encounters Date Type Department Care Team Description 08/23/2024 9:10 AM REGIONAL DIRECTOR E-Visit [address] [address] Ronel Duffy NP E-Visit for Sinus 08/23/2024 Patient Self-Triage [facility]/ Physicians [address] [place] [address] Mychart, Generic Provider 08/20/2024 8:50 AM REGIONAL DIRECTOR E-Visit [address] [address] Reanna Eubanks NP E-Visit for Diarrhea 08/20/2024 Patient Self-Triage [facility]/ Physicians [address] [place] [address] Mychart, Generic Provider 07/28/2024 11:00 AM REGIONAL DIRECTOR Therapy [facility] [address] [place], [place] [phone] Yamile Schwartz LCSW RONNI (generalized anxiety disorder) [F41.1] (Primary Dx) 07/23/2024 9:30 AM REGIONAL DIRECTOR E-Visit [address] [address] Megan Joiner NP E-Visit for Diarrhea 07/23/2024 Patient Self-Triage [facility] [address] [place] [address] Mychart, Generic Provider 07/07/2024 11:00 AM REGIONAL DIRECTOR Therapy [facility] [address] [place] [address] Yamile Schwartz LCSW RONNI (generalized anxiety disorder) [F41.1] (Primary Dx) 07/04/2024 Telephone [facility] [address] [address] Daniel English MD Prednisone Clarification 06/09/2024 Telephone [facility] [address] [address] Zandra Bell NP 06/05/2024 11:55 AM REGIONAL DIRECTOR Lab [facility] [address] [place] [phone] PCOS (polycystic ovarian syndrome); Irregular menstrual cycle 05/26/2024 11:00 AM REGIONAL DIRECTOR Therapy [facility] [address] [place] [address] Yamile Schwartz LCSW Anxiety and depression [F41.9, F32.A] (Primary Dx) from Last 3 Months Allergies Active Allergy Reactions Criticality Noted Date [...] mouth once a week 12 capsule 4 Active cetirizine (ZyrTEC) 10 mg tabletIndications :Chronic Idiopathic Urticaria Take 1 tablet (10 mg total) by mouth 2 (two) times a day 60 tablet 11 Active famotidine (PEPCID) 20 mg tabletIndications :Chronic [...] day as needed for cough 120 mL Active fluticasone propion-salmetero L (ADVAIR DISKUS) 250-50 [...] TWICE DAILY WITH MEALS 90 tablet 1 Active clonazePAM (KlonoPIN) 1 mg tabletIndications :RONNI (generalized anxiety disorder) TAKE 1 TABLET(1 MG) BY MOUTH TWICE DAILY 60 tablet 2 Active prochlorperazine (COMPAZINE) 10 mg tablet Take 1 tablet (10 mg total) by mouth 3 (three) times a day as needed for nausea or vomiting 9 tablet Active albuterol HFA (PROVENTIL HFA,VENTOLIN HFA,PROAIR HFA) [...] 07/10/2023 Assessment & Plan (07/10/2023 2:28 PM REGIONAL DIRECTOR): Increased fatigue; states that she can nap for hours; can drink energy drink and go straight to sleep Reactive airway disease with wheezing 05/30/2023 Assessment & Plan (05/31/2023 12:46 PM REGIONAL DIRECTOR): Exacerbation with wheezing Restart singulair and advair [...] BuSpar Assessment & Plan (07/10/2023 2:33 PM REGIONAL DIRECTOR): Stable, well controlled Continue Konopin 1 mg bid prn and BuSpar 5 mg tid prn Has not taken BuSpar regularly Assessment & Plan (05/07/2023 5:20 PM REGIONAL DIRECTOR): Stable, generally well controlled Continue Klonopin 1 [...] b.i.d. Assessment & Plan (08/31/2022 4:06 PM REGIONAL DIRECTOR): Not well controlled; patient has been on 6 antidepressants in the past; no relief in worsening symptoms with bupropion 150 mg daily Given prior failures with SSRIs, SNRIs and atypical antidepressants; will start Klonopin 0.5 mg b.i.d. Assessment & Plan (07/25/2022 4:11 PM REGIONAL DIRECTOR): Worsening anxiety, causing significant distress and triggering depression for patient Start bupropion 150 mg daily Irritable bowel syndrome with diarrhea 8 Assessment & Plan (01/18/2024 1:18 PM CDT): Chronic, stable, well controlled Continue Dicyclomine 10 mg QID and Lomotil on days she works Assessment & Plan (07/10/2023 2:37 PM REGIONAL DIRECTOR): Stable, generally improving Continue dicyclomine 10 mg and Lomotil Assessment & Plan (10/06/2022 4:42 PM CDT): Mildly improving; has daily diarrhea but decreased frequency stool; patient reports fewer stomach cramps Fewer days of missed appointments Continue dicyclomine 10 mg q.i.d.; Lomotil Daily Assessment & Plan (08/31/2022 4:06 PM REGIONAL DIRECTOR): Continues to have diarrhea; worsened today; follows with Endocrinology Continue Lomotil p.r.n. for diarrhea Encouraged patient to work towards low FODMAP diet; follow-up with Allergy immunology to evaluate for possible food allergies as exacerbations of current symptoms Assessment & Plan (07/25/2022 4:10 PM REGIONAL DIRECTOR): Continues to have episodes of diarrhea, colonoscopy [...] sweats Assessment & Plan (05/15/2022 10:55 AM REGIONAL DIRECTOR): Not well controlled, worsening; patient reports increased anxiety and stress Having diarrhea, rebound per day, can spent at least 20 minutes in the bathroom evacuating bowels; watery in by Jayesh tam to stool Patient has been working on [...] exercise Assessment & Plan (07/10/2023 2:39 PM REGIONAL DIRECTOR): Mild increase; still trying to focus on weight loss She is having increased fatigue that it is making it hard to exercise. Assessment & Plan (07/10/2023 2:38 PM REGIONAL DIRECTOR): >>ASSESSMENT AND PLAN FOR CLASS 2 OBESITY [...] vomiting 07/13/2022 01/18/20 24 Urticaria 08/01/2021 01/18/2024 Immunizations Immunization Administration Dates Next Due DTP 10/31/2001, 2,03/07/2001,03/07,10/25/1996,10/25/1996,1995 ,1995 Hep A, Pediatric 02/20/2006,02/20/2006 Hep A, Unspecified 02/28/2010,02/28/2010 Hep B, Adolescent or Pediatric 1,03/07/2001,1995,04/25,1995,1995 HiB 10/25/1996, 7,1995,08/08 IPV 03/07/2001, 1,10/25/1996,10/25,1995,1995 Influenza, Quadrivalent, Spl it, Preservative Free, Intramuscular 07/20/2022 Influenza, Unspecified 03/07/2023(Deferred: Denia ent Refused) MMR 03/07/2001, 1,10/25/1996,10/25 Meningococcal MCV4P (Menactra) 2,03/20/2012,02/28/2010,02/28 Pneumococcal Polysaccharide PPV23 09/27/2023 Tdap 01/18/2017, 7,02/20/2006,02/20 Social History Tobacco Use Types Packs/Day Years Used Date Smoking Tobacco: Never Smokeless Tobacco: Never Alcohol Use Standard Drinks/Week Comments No 0 (1 standard drink = 0.6 oz pur e alcohol) [facility] Active DSPities Answer Date Recorded In the past 12 months has [employer], gas, oil, or water [employer] threatened to shut off services in your [...] week 07/10/2023 How often do you attend [facility] or christianity services? Never 07/10/2023 Do you belong to any clubs o r organizations such as confucianist groups, unions, fraternal or athletic groups, or [...] staff should administer the PHQ-9) 0 01/28/2024 [facility] - Occupational Stress Questionnaire Answer Date [...] place to sleep or slept in a penitentiary (including now)? 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 Not on file Not on file Last Filed Vital Signs Vital Sign Reading [...] 04/25/2024 3:52 PM CDT Plan of Treatment Not on file Procedures Procedure Name Priority Date/Time Associated Diagnosis Comments EGFR Routine 06/05/2024 11:55 AM REGIONAL DIRECTOR PCOS (polycystic ovarian syndrome) Irregular menstrual cycle COMPREHENSIVE METABOLIC PANEL Routine 06/05/2024 11:55 AM REGIONAL DIRECTOR PCOS (polycystic ovarian syndrome) Irregular menstrual cycle INSULIN, TOTAL Routine 06/05/2024 11:55 AM REGIONAL DIRECTOR PCOS (polycystic ovarian syndrome) Irregular menstrual cycle DHEA-SULFATE Routine 06/05/2024 11:55 AM REGIONAL DIRECTOR PCOS (polycystic ovarian syndrome) Irregular menstrual cycle TOTAL TESTOSTERONE Routine 06/05/2024 11 :55 AM REGIONAL DIRECTOR PCOS (polycystic ovarian syndrome) Irregular menstrual cycle FOLLICLE STIMULATING HORMONE Routine 06/05/2024 11:55 AM REGIONAL DIRECTOR PCOS (polycystic ovarian syndrome) Irregular menstrual cycle LUTEINIZING HORMONE (LH) Routine 06/05/2024 11:55 AM REGIONAL DIRECTOR PCOS (polycystic ovarian syndrome) Irregular menstrual cycle PAP, REFLEX HPV Routine 01/28/2024 3:45 PM CDT Well woman exam HEPATITIS PANEL, ACUTE Routine 3:08 PM REGIONAL DIRECTOR Hepatic steatosis from Last 3 Months or Most Recently Relevant to Health Maintenance Results * eGFR (06/05/2024 11:55 AM REGIONAL DIRECTOR) eGFR >90 >=60 mL/min/1. 73 m2 Comment: [...] was last reviewed 2021. Testing performed by: [facility], [address] [place] [address], [place]., [address] Blood 06/05/2024 11:5 5 AM REGIONAL DIRECTOR 06/05/2024 6:54 PM REGIONAL DIRECTOR us Kristine Moura NP LAB BLOOD ORDERABLES Final Resul t Performing Organization Address City/[facility]/ZIP Co de Phone Number CHERYL BRANTLEY ([place]) [address] [facility] [place] [address] * Insulin, total (06/05/2024 11:55 AM REGIONAL DIRECTOR) Insulin 21.4 2.6 - 25.0 mcIUnit/mL Comment:Testing performed by : [facility], [address] [place] [address], [id number] Blood 06/05/2024 11:5 5 AM REGIONAL DIRECTOR 06/06/2024 1:00 AM REGIONAL DIRECTOR us Kristine Moura NP LAB BLOOD ORDERABLES Final Resul t Performing Organization Address [facility] Co de Phone Number CHERYL BRANTLEY ([place]) [address] [facility] [place] [address] * DHEA-sulfate (06/05/2024 11:55 AM REGIONAL DIRECTOR) DHEA-S 142.0 98.8 - 340.0 mcg/dL Comment:Testing performed by : [facility], [address] [place] [address], [id number] Blood 06/05/2024 11:5 5 AM REGIONAL DIRECTOR 06/06/2024 1:00 AM REGIONAL DIRECTOR us Kristine Moura NP LAB BLOOD ORDERABLES Final Resul t Performing Organization Address City/[facility]/ZIP Co de Phone Number CHERYL BRANTLEY ([place]) [address] [facility] [place] [address] * Total testosterone (06/05/2024 11:55 AM REGIONAL DIRECTOR) Testosterone 30 8 - 48 ng/dL Comment:Testing performed by : [facility], [address] [place] [address], [place]., [address] Blood 06/05/2024 11:5 5 AM REGIONAL DIRECTOR 06/05/2024 6:11 PM REGIONAL DIRECTOR us Kristine Moura NP LAB BLOOD ORDERABLES Final Resul t Performing Organization Address City/[facility] Co de Phone Number CHERYL BRANTLEY ([place]) [address] [place] [address] * LH (06/05/2024 11:55 AM REGIONAL DIRECTOR) LH 9.8 IUnits/L Comment: Interpretive Data Males: Adults: 1.7 - 8.6 IUnits/L Females: Follicular: 2.4 - 12.6 IUnits/L Ovulation: 14.0 - 95.6 IUnits/L Luteal: 1.0 - 11.4 IUnits/L Postmenopausal: 7.7 - 58.5 IUnits/L Current interpretive data was last revised on 2018. Testing performed by: [facility], [address] [place] [address], [id number] Blood 06/05/2024 11:5 5 AM REGIONAL DIRECTOR 06/06/2024 1:00 AM REGIONAL DIRECTOR us Kristine Moura NP LAB BLOOD ORDERABLES Final Resul t Performing Organization Address [facility] [[email or web address]] de Phone Number CHERYL BRANTLEY ([place]) [address] [place] [address] * Follicle stimulating hormone (06/05/2024 11:55 AM REGIONAL DIRECTOR) FSH 6.0 IUnits/L Comment: Interpretive Data Male: Adults: 1.5 - 12.4 IUnits/L Female: Follicular: 3.5 - 12.5 IUnits/L Ovulation: 4.7 - 21.5 IUnits/L Luteal: 1.7 - 7.7 IUnits/L Postmenopausal: 25.8 - 134.8 IUnits/L Current interpretive data was last revised 2015. Testing performed by: [facility], [address] [facility], [place]., [address] Blood 06/05/2024 11:5 5 AM REGIONAL DIRECTOR 06/06/2024 1:00 AM REGIONAL DIRECTOR us Kristine Moura NP LAB BLOOD ORDERABLES Final Resul t CHERYL [facility] ([place]) 1 [facility] [place] [address] * (ABNORMAL) Comprehensive metabolic panel (06/05/2024 11:55 AM REGIONAL DIRECTOR) Sodium 141 135 - 145 mmol/L Comment:Testing performed by : [facility], [address] [place] [address], [address] Potassium, pl 4.0 3.3 - 4.9 mmol/L [facility] ([place]) Comment:Testing performed by : [facility], [address] [place] [address], [address] Chloride 104 97 - 110 mmol/L [facility] ([place]) Comment:Testing performed by : [facility], [address] [place] [address], [address] CO2 26 22 - 32 mmol/L [facility] ([place]) Comment:Testing performed by : [address], [address] Anion gap 11 2 - 15 mmol/L [facility] ([place]) Comment:Testing performed by : [address], [address] BUN 7 6 - 25 mg/dL [facility] ([place]) Comment:Testing performed by : [address], [address] Creatinine 0.51(L) 0.60 - 1.10 mg/dL [facility] ([place]) Comment:Testing performed by : [address], [address] Glucose 98 70 - 199 mg/dL BRADNER [...] classification and Diagnosis of Diabetes Diabetes Care 202; 46: S19-S40. Current interpretive data was last revised 2022. Testing performed by: [facility], [address] [place] [address]., [address] Calcium 9.3 8.5 - 10.3 mg/dL [facility] ([place]) Comment:Testing performed by : [address] [address] Bilirubin, total 0.2 0.1 - 1.2 mg/dL [facility] ([place]) Comment:Testing performed by : [address], [address] Protein, pl 7.0 6.5 - 8.5 g/dL [facility] ([place]) Comment:Testing performed by : [address], [address] Albumin 4.3 3.5 - 5.0 g/dL [facility] ([place]) Comment:Testing performed by : [address], [address] Alk phos 100 40 - 130 Units/L [facility] ([place]) Comment:Testing performed by : [address], [address] ALT 26 7 - 45 Units/L [facility] ([place]) Comment:Testing performed by : [address], [address] AST 23 10 - 45 Units/L [facility] ([place]) Comment:Testing performed by : [address], [address] Blood 06/05/2024 11:5 5 AM REGIONAL DIRECTOR 06/05/2024 6:11 PM REGIONAL DIRECTOR us Kristine Moura NP LAB BLOOD ORDERABLES Final Resul t [facility] ([place]) 1 [facility] Department [place] [address] * Pap, reflex HPV (01/28/2024 3:45 PM CDT) CLINICAL INFORMATION: Amy HernandezArchie Carlton Comment:Routine exam LMP Amy HernandezArchie Carlton Comment:[id number] Previous Pap Amy Carlton Comment:None given Prev. Bx Amy Carlton Comment:None given SOURCE: Amy Carlton Comment:Cervix, Endocervix Pap, specimen adequacy Amy Carlton Comment: Satisfactory for evaluation. Endocervical/transformation zone component present. HPV interp Amy Carlton Comment: Cytology Results: Negative for intraepithelial lesion or malignancy. COMMENTS Amy Carlton Comment: This Pap test has been evaluated with computer assisted technology. Stave Grader Darrell Malhotra Comment: BKA, CT(ASCP) CT screening location: [place] [address] Administration PATRICK Whipple [address] Review labour market economist Amy Carlton Comment: MVB, CT(ASCP) CT Screening Location: [place] [address] Administration PATRICK Whipple [address] Comment Amy Carlton Comment: EXPLANATORY NOTE: The Pap is [...] CDT 01/29/2024 4:54 AM CDT Kristine Moura SQL SSRS DEVELOPER LAB CYTOLOGY ORDERABLES Final Re sult AMY Hernandez [employer] [address] Administration PATRICK Chopra [address] * Hepatitis panel, acute (07/13/2022 3:08 PM REGIONAL DIRECTOR) Hep A IgM Nonreactive Nonreactive [facility] ([place]) Comment: Interpretive Data: If Hep A IgM Ab is reported as Equivocal, a new sample should be drawn in two weeks for testing. Current interpretive data was last revised on 19. Testing performed by: [facility], [address] [place] [address]., [id number] Hep B core IgM Nonreactive Nonreactive C FRANKIE BRANTLEY ([place]) Comment: Interpretive Data If HepB Core IgM Ab is reported as Equivocal, a new sample should be drawn in two weeks for testing. Current interpretive data was last revised on 19. Testing performed by: [facility], [address] [place] [address]., [address] Hep C Ab Nonreactive Nonreactive CHERYL BRANTLEY [...] last revised on 2019. Testing performed by: [facility], [address] [place] [address]., [address] HepBsAg Nonreactive Nonreactive CHERYL BRANTLEY ([place]) Comment:Testing performed by : [facility], [address] [place] [address]., [id number] Blood 07/13/2022 3:08 PM REGIONAL DIRECTOR 07/13/2022 8:14 PM REGIONAL DIRECTOR Elke HER LAB MICROBIOLOGY - GENER AL ORDERABLES Final Result CHERYL BRANTLEY ([place]) 1 [facility] [place] [address] from Last 3 Months or Most Recently Relevant to Health Maintenance Insurance [facility] Member Subscriber Plan / Payer (Ef fective 2021-Present) Name:Radha Gutierrez Relation to Subscriber:Self Name:Radha Gutierrez Payer ID:[id number] (NAIC) Group ID:Not on file Type:MEDICAID [id number] OTHER Address: ATTN: CLAIMS DEPT [address] [place] [id number] Advance Directives For more information, please contact: [phone] * Full Code (Latest Code Status on File) Date Activated Date Inactivated Comments 08/29/2022 12:04 PM 08/29/2022 7:21 PM * Full Code Date Activated Date Inactivated Comments 08/29/2022 12:04 PM 08/29/2022 12:04 PM * Full Code Date Activated Date Inactivated Comments 07/18/2022 12:00 PM 07/18/2022 7:37 PM * Full Code Date Activated Date Inactivated Comments 07/18/2022 11:59 AM 07/18/2022 11:59 AM Care Teams Heel Stiffener Relationship Specialty Start Date End Date Daniel English MD [address] [place] [address] PCP - General 10/30/21
--- OUTSIDE RECORDS SUMMARY | 2024-08-23 10:56 | XMS_ITS | Clinical Summary ---
Author Organization [facility] Address [address], [address] [address] Phone Care Team Providers Care Property Management Assistant Name Role Phone Marcia Johnson Kavin HOTEL DINING ROOM CASHIER, HAMMERER Unavailable [phone] Allergies No known active allergies Medications Norethindrone Acet-Ethinyl Est 1-20 MG-MCG Tablet Take by mouth. 8 Active venlafaxine (EFFEXOR-XR) 75 MG CAPSULE SR 24 HRIndications:A nxiety and depression Take 1 Cap by mouth daily. 30 Cap 1 9 Active Additional Information Patient not taking.Reported on 06/05/2019 LORazepam (ATIVAN) 0.5 MG TabletIndicatio ns:Anxiety and depression Take 1 Tab by mouth every 8 hours as needed for Anxiety. 30 Tab 9 Active Additional Information Patient not taking.Reported on 06/05/2019 ondansetron (ZOFRAN-ODT) 4 MG TABLET DISPERSIBLEIndi cations:Nausea Take 1 Tab by mouth every 8 hours as needed for Nausea - 1st line. 10 Tab 9 Active Active Problems Problem Noted Date Diagnosed Date Irritable bowel syndrome with diarrhea 8 Vitamin D deficiency 04/01/2018 B12 deficiency 04/01/2018 Hyperlipidemia 04/01/2018 Hyperglycemia 04/01/2018 Encounter for wellness examination (Adult) 01/01 Obesity (BMI 30-39.9) 01/01/2018 Hives 01/01/2018 Immunizations Immunization Administration Dates Next Due DTP Vaccine 10/31/2001, 1,10/25/1996,08/08 Hepatitis A Vaccine, Pediatric/adolescent, 2 Dose Schedule 02/20/2006 Hepatitis A Vaccine,unspecif ied Formulation 02/28/2010 Hepatitis B Vaccine, Pediatric/adolescent 03/07/2001,1995,1995 Hib Vaccine,unspecified Formulation 10/25/1996,0 1995 Inactivated Polio Vaccine 03/07/2001,10/25/1996, 1995 MMR Vaccine 03/07/2001,10/25/1996 Meningococcal Vaccine 03/20/2012,02/28/2010 TDAP Vaccine 01/18/2017,02/20/2006 Family History Medical History Relation Name Comments No Known Problems Brother Celio High Cholesterol Father No Known Problems Maternal Aunt Bhanu Diabetes Mother Relation Name Status Comments Brother Celio Alive Father Alive Maternal Aunt Bhanu Alive Mother Alive Social History Tobacco Use Types Packs/Day Years Used Date Smoking Tobacco: Never Smokeless Tobacco: Never Tobacco Cessation:Counseling Given: Yes Alcohol Use Standard Drinks/Week Comments No 0 (1 standard drink = 0.6 oz pur e alcohol) PHQ-2 Answer Date Recorded PHQ-2 Score 0 03/05/2019 Comments No Sex and Gender Information Value Date Recorded Sex Assigned at Not on file Legal Sex Female 9:58 PM CDT Gender Identity Not on file Sexual Orientation Not on file Last Filed Vital Signs Vital Sign Reading Time Taken Comments Blood Pressure 108/66 06/05/2019 3:24 PM [employer] Pulse 74 06/05/2019 3:24 PM [employer] Temperature 37.1 C (98.7 F) 06/05/2019 3:24 PM [employer] Respiratory Rate 16 03/28/2019 3:33 PM CDT Oxygen Saturation 98% 06/05/2019 3:24 PM [employer] Inhaled Oxygen Concentration - - Weight 83 kg (183 lb) 06/05/2019 3:24 PM [employer] Height 157.5 cm (5' 2 ) 03/28/2019 3:33 PM CDT Body Mass Index 33.47 03/28/2019 3:33 PM CDT Plan of Treatment Health Maintenance Due Date Last Done Comments Hepatitis C Virus (HCV) Screening 1995 Pap Smear 2016 Influenza Immunization (#1) 2024 SARS-COV-2 Immunization ( season) 2024 04/03/2021, 03/13/2021 DTaP/Tdap/Td Immunization (7 - Td or Tdap) 01/18/2027 01/18/2017, 02/20/2006, 10/31/2001, Additional history exists Respiratory Syncytial Virus (RSV) Immunization (Adult) (1 - 1-dose 75+ series) 2070 Hepatitis B Immunization Completed 001, 1995, 1995 Meningococcal Immunization (ACWY) Completed 03/20/2012, 02/28/2010 Pneumococcal Immunization Combined Aged Out No longer eligible based on patient's age to complete this topic Rotavirus Immunization Aged Out No lo nger eligible based on patient's age to complete this topic Insurance MEDICAID [employer] Care Teams Property Management Assistant Relationship Specialty Start Date End Date Marcia Johnson, HOTEL DINING ROOM CASHIER, HAMMERER Certified Nurse Practitioner 04/01/18
[2024-08-23 11:00] VITALS: BP 121/78; PULSE 115; RESP 20; TEMP 37.3; O2SAT 97
[2024-08-23 11:22] LABS: EDCOVIDSCREEN Negative (Negative); EDINFLUASCREEN Positive (Negative); EDINFLUBSCREEN Negative (Negative)
--- NOTE | 2024-08-23 11:42 | ED_ITS ---
HPI - General Adult General Chief complaint: Upper Respiratory Infection Stated complaint: cough,fever,chills Source: patient Mode of arrival: ambulatory Limitations: no limitations History of Present Illness HPI narrative: Pt presents for evaluation of sick symptoms for the past three days. Symptoms include fever, headache, generalized body aches, sore throat, sinus congestion cough wheezing, nausea, vomiting, diarrhea. She has been exposed to a few individuals who have influenza. She has tried tylenol, ibuprofen, dayquil and nyquil for her symptoms. She does not smoke. She has an underlying history of asthma. Related Data Allergies Allergy/AdvReac Type Severity Reaction Status Date / Time amoxicillin (From Augmentin) Allergy Unknown Unknown Verified 08/23/24 11:08 clavulanic acid (From Allergy Unknown Unknown Verified 08/23/24 11:08 Augmentin) Review of Systems Review of Systems: CONSTITUTIONAL: Reports fever. EYES: Denies visual changes, redness, or discharge. ENT: Reports sinus congestion and sore throat. CARDIOVASCULAR: Denies chest pain, palpitations, or edema. RESPIRATORY: Reports cough wheezing. GASTROINTESTINAL: Reports nausea, vomiting, diarrhea. Denies abdominal pain. GENITOURINARY: Denies dysuria or hematuria. SKIN: Denies rash or itching. MUSCULOSKELETAL: Reports generalized body aches. NEUROLOGIC: Reports headache. Denies numbness, dizziness, or weakness. PSYCHIATRIC: Denies anxiety or depression. PMFSH Past Medical History Medical History Asthma Surgical History Surgical History History of cholecystectomy Family History Family History Mother Family history non-contributory Social History Social History Smoking status: Never smoker Living arrangements: with family Gender identity (if verbalized by the patient): Female Spiritual care concerns: No Exam Narrative: GENERAL: Well-appearing, well-nourished, and in no acute distress. HEAD: Normocephalic, atraumatic. EYES: PERRLA and EOMI. ENT: Nares clear, no rhinorrhea or epistaxis. Mucous membranes moist. Oropharynx without tonsillar hypertrophy exudate or other lesions. Bilateral TMs pearly cook nonbulging NECK: Supple. No adenopathy or masses. No carotid bruits or JVD CHEST: Mild wheezing in RUL. Cough present on exam. HEART: Regular rate and rhythm. No murmur heard. Normal peripheral pulses. ABDOMEN: Soft, nontender, nondistended, normal active bowel sounds. EXTREMITIES: Normal range of motion. No edema. SKIN: Warm, dry, no rash. NEURO: No focal deficits. Alert and oriented x3. PSYCH: Normal mood and affect. Course Course Emergency Course: This is a 29-year-old female who presented for evaluation of sick symptoms. Influenza A positive. She has wheezing on exam. Will discharge with Tamiflu and prednisone. Increase hydration. [id number] agents for symptom management. Follow up with primary provider. Go to the ER for worsening symptoms. Pt in agreement with plan of care. Level of Care: Express Care Visit Vital Signs Vital signs: Vital Signs Temperature 37.3 C 08/23/24 11:00 Pulse Rate 115 H 08/23/24 11:00 Respiratory Rate 20 08/23/24 11:00 Blood Pressure 121/78 08/23/24 11:00 Pulse Oximetry 97 08/23/24 11:00 Oxygen Delivery Room Air 08/23/24 11:00 Temperature 37.3 C 08/23/24 11:00 Pulse Rate 115 H 08/23/24 11:00 Respiratory Rate 20 08/23/24 11:00 Blood Pressure 121/78 08/23/24 11:00 Pulse Oximetry 97 08/23/24 11:00 Oxygen Delivery Room Air 08/23/24 11:00 Medical Decision Making Vital Signs Vital Signs: Vital Signs Temperature 37.3 C 08/23/24 11:00 Pulse Rate 115 H 08/23/24 11:00 Respiratory Rate 20 08/23/24 11:00 Blood Pressure 121/78 08/23/24 11:00 Pulse Oximetry 97 08/23/24 11:00 Oxygen Delivery Room Air 08/23/24 11:00 Temperature 37.3 C 08/23/24 11:00 Pulse Rate 115 H 08/23/24 11:00 Respiratory Rate 20 08/23/24 11:00 Blood Pressure 121/78 08/23/24 11:00 Pulse Oximetry 97 02/22/25 11:00 Oxygen Delivery Room Air 08/23/24 11:00 Lab Data Labs: Lab Results 08/23/24 Range/Units 11:20 POC Influenza A Ag Positive (Negative) POC Influenza B Ag Negative (Negative) POC SARS CoV-2 Ag Negative (Negative) Discharge Plan Discharge Clinical Impression: Influenza A, Asthma Patient Disposition: Home, Self-Care Condition: Stable Instructions: Antibiotic Form, Asthma (ED), Influenza (ED) Patient Language: [place] Prescriptions: New prednisone 50 mg tablet 50 mg PO DAILY Qty: 5 0RF oseltamivir [Tamiflu] 75 mg capsule 75 mg PO Q12H 5 Days Qty: 10 0RF No Action penicillin V potassium 500 mg tablet 500 mg PO Q12H 10 Days Qty: 20 0RF Follow-up/Referrals: Eladio,MD Daniel [Primary Care Provider] - Stand Alone Forms: Work/School Release IP Time of Disposition: 11:40
== END 2024-08-23 11:47 | disposition home or self-care (01) ==
PROVIDERS: Emergency Provider Nurse Practitioner; PCP Hospitalist
DX: J10.1 Influenza due to other identified influenza virus with other respiratory manifestations (principal); J45.909 Unspecified asthma, uncomplicated; Z20.822 Contact with and (suspected) exposure to COVID-19
CPT/HCPCS: 87426; 87804; 99213; G0463

== ENCOUNTER 2024-09-26 10:36 | Emergency (ER) | payer OTHER, SELFPAY ==
[2024-09-26 10:44] VITALS: BP 117/80; PULSE 89; RESP 16; TEMP 36.6; O2SAT 97
--- NOTE | 2024-09-26 10:58 | ED_ITS ---
HPI - URI/Sore Throat General Chief Complaint: Upper Respiratory Infection Stated Complaint: Throat Time Seen by Provider: 09/26/24 10:58 History of Present Illness HPI Narrative: [age] year old female presented for c/o sore throat, cough with wheezing, nasal congestion, drainage and bilateral ear pressure. Onset 3 days. Denies shortness of breath, nausea vomiting diarrhea fevers or chills. Taking Tylenol. Reports nausea, however says it could be r/t starting new med stratt era. Related Data Allergies Allergy/AdvReac Type Severity Reaction Status Date / Time amoxicillin (From Augmentin) Allergy Unknown Unknown Verified 09/26/24 11:01 clavulanic acid (From Allergy Unknown Unknown Verified 09/26/24 11:01 Augmentin) Review of Systems Review of Systems: CONSTITUTIONAL: Denies body aches, fever, chills, or sweats. EYES: Denies visual changes, redness, or discharge. ENT: reports rhinorrhea, congestion, sore throat, otalgia. CARDIOVASCULAR: Denies chest pain, palpitations, or edema. RESPIRATORY: reports cough Denies dyspnea. GASTROINTESTINAL: Denies abdominal pain, nausea, vomiting, or diarrhea. SKIN: Denies rash MUSCULOSKELETAL: Denies back pain, joint pain, or myalgia. NEUROLOGIC: Denies headache PMFSH Past Medical History Medical History Asthma Surgical History Surgical History History of cholecystectomy Family History Family History Mother Family history non-contributory Social History Social History Smoking status: Never smoker Living arrangements: with family Gender identity (if verbalized by the patient): Female Spiritual care concerns: No Exam Narrative: GENERAL: well-appearing, no acute distress. EYES: conjunctivae clear ENT: Mucous membranes moist. TMs pearly cook with normal light reflex bilaterally; no tragal tenderness. Oropharynx erythematous Tonsils enlarged 2+ with exudate. No drooling, no hoarseness, no trismus, uvula midline. No tripod positioning, hot potato voice, or soft palate swelling. NECK: Supple. No lymphadenopathy CHEST: Expiratory wheezing throughout. No respiratory distress, speaks in full sentences. HEART: Regular rate and rhythm. SKIN: Warm, dry, no rash. NEURO: Alert and oriented x3. Course Course Emergency Course: Patient is aware of diagnosis, understands and agrees to treatment plan. Anticipatory guidance given. Patient agrees to follow-up as directed and is aware of reasons to seek care at the emergency department. Portions of this record may have been created with voice recognition software Level of Care: Express Care Visit Vital Signs Vital signs: Vital Signs Temperature 98 F 09/26/24 10:44 Pulse Rate 89 09/26/24 10:44 Respiratory Rate 16 09/26/24 10:44 Blood Pressure 117/80 09/26/24 10:44 Pulse Oximetry 97 09/26/24 10:44 Oxygen Delivery Room Air 09/26/24 10:44 Temperature 98 F 09/26/24 10:44 Pulse Rate 89 09/26/24 10:44 Respiratory Rate 16 09/26/24 10:44 Blood Pressure 117/80 09/26/24 10:44 Pulse Oximetry 97 09/26/24 10:44 Oxygen Delivery Room Air 09/26/24 10:44 MDM - URI/Sore Throat MDM Narrative Medical decision making narrative: neg flu covid strep result reviewed with pt. Pt says she cannot take augmentin but tolerates amoxicillin without allergic reaction. Advise supportive treatments. Patient is appropriate for outpatient treatment and follow-up. Differential Diagnosis Differential diagnosis: Likely upper respiratory infection, viral infection and pharyngitis Discharge Plan Discharge Clinical Impression: Bronchitis Patient Disposition: Home, Self-Care Condition: Stable Instructions: Antibiotic Form, Asthma (ED), Strep Throat (ED) Additional Instructions: Rapid strep swab was negative today if symptoms are due to a viral illness, it is not treated with antibiotics. Viral symptoms can be present for up to 10-14 days. take the steroid as directed Recommendations: use your albuterol inhaler every 4-6 hours for the next few days Flonase spray and Zyrtec for sinus congestion Cough syrup may cause drowsiness; avoid driving or take it at night time. Tylenol every 8 hours as needed for pain/fever Soft foods, cool liquids, warm tea. Gargle with warm saltwater twice a day. Chloraseptic spray and throat lozenges. Rest and stay hydrated. --Follow up with your PCP --Go to the ER immediately if you cannot swallow your saliva, trouble breathing/wheezing, throat swelling, pain is persistent and severe Patient Language: [place] Prescriptions: New amoxicillin 500 mg tablet 1,000 mg PO DAILY 10 Days Qty: 20 0RF methylprednisolone [Medrol (Dany)] 4 mg tablets,dose pack See Rx Instructions .ROUTE .COMPLEX Qty: 21 0RF Rx Instructions: orally per package directions Follow-up/Referrals: Eladio,MD Daniel [Primary Care Provider] - Stand Alone Forms: Work/School Release IP Time of Disposition: 11:13
[2024-09-26 11:05] LABS: EDSTREPNEGPOS1 Negative (Negative)
[2024-09-26 11:12] LABS: EDCOVIDSCREEN Negative (Negative)
[2024-09-26 11:13] LABS: EDINFLUASCREEN Negative (Negative); EDINFLUBSCREEN Negative (Negative)
--- OUTSIDE RECORDS SUMMARY | 2024-09-26 11:31 | XMS_ITS | Clinical Summary ---
Author Organization [facility] Address [address] [place] [address] Care Team Providers Care Shellfish Shucker Name Role Phone Daniel English MD Primary Care Provider [phone] Allergies Active Allergy Reactions Criticality Noted Date Comments Amoxicillin-Pot Clavulanate Rash Medium 07/25/19 24 Clavulanate Medications ipratropium-albut Sloan (DUO-NEB) 0.5-2.5 mg/3 mL nebulizer solutionIndicatio ns:Chronic Obstructive Pulmonary Disease with Bronchospasms Take 3 mL by nebulization 4 (four) times a day as needed for wheezing or shortness of breath 90 mL 11 023 Active dicyclomine (BENTYL) 10 mg capsuleIndication s:Irritable bowel syndrome with diarrhea Take 1 capsule (10 mg total) by mouth 4 (four) times a day before meals and nightly 360 capsule 024 Active promethazine-DM (PROMETHAZINE-DM) 1.25-3 mg/mL syrupIndications: Allergic Rhinitis Take 5-10 mL by mouth 4 (four) times a day as needed for cough 120 mL 024 Active Additional Information Patient not taking.Reported on 09/23/2024 fluticasone propion-salmetero L (ADVAIR DISKUS) 250-50 mcg/dose [...] daily 16 g 3 024 2024 Active clonazePAM (KlonoPIN) 1 mg tabletIndications :RONNI (generalized anxiety disorder) TAKE 1 TABLET(1 MG) BY MOUTH TWICE DAILY 60 tablet 2 Active prochlorperazine (COMPAZINE) 10 mg tablet Take 1 tablet (10 mg total) by mouth 3 (three) times a day as needed for nausea or vomiting 9 tablet Active Additional Information Patient not taking.Reported on 09/23/2024 diphenoxylate-atr opine (LOMOTIL) 2.5-0.025 mg per tabletIndications :diarrhea Take 2 tablets in the morning, and then one tablet with each additional stool every 8 hours for a total of 4 tablets per day. 180 tablet 3 Active montelukast (SINGULAIR) 10 mg tabletIndications :Mild intermittent reactive airway disease with wheezing with acute exacerbation Take 1 tablet (10 mg total) by mouth nightly 90 tablet 4 025 2025 Active ondansetron ODT (ZOFRAN-ODT) 4 mg disintegrating tablet Take 1 tablet (4 mg total) by mouth every 8 (eight) hours as needed for nausea or vomiting 20 tablet Active ergocalciferol (VITAMIN D) 50,000 unit capsuleIndication s:Vitamin D deficiency Take 1 capsule (50,000 Units total) by mouth once a week 12 capsule 3 025 2025 Active cetirizine (ZyrTEC) 10 mg tabletIndications :Chronic Idiopathic Urticaria Take 1 tablet (10 mg total) by mouth 2 (two) times a day 60 tablet 3 Active metFORMIN XR (GLUCOPHAGE XR) 500 mg 24 hr tablet TAKE 1 TABLET(500 MG) BY MOUTH TWICE DAILY WITH MEALS 180 tablet 1 Active famotidine (PEPCID) 20 mg tabletIndications :Chronic idiopathic urticaria Take 1 tablet (20 mg total) by mouth 2 (two) times a day 60 tablet 11 025 2025 Active albuterol HFA (PROVENTIL HFA,VENTOLIN HFA,PROAIR HFA) 90 mcg/actuation inhalerIndication s:Mild intermittent reactive airway disease without complication INHALE 2 PUFFS BY MOUTH EVERY 6 HOURS NEEDED FOR WHEEZING OR SHORTNESS OF BREATH 18 g 025 Active no115/iron/folic acid ( 19 ORAL) Take by mouth Active atomoxetine (STRATTERA) 40 mg capsuleIndication s:Attention-Defic it Hyperactivity Disorder Take 1 capsule (40 mg total) by mouth daily for 14 days, THEN 2 capsules (80 mg total) daily. 134 capsule 025 2024 Active atomoxetine (STRATTERA) 80 mg capsule Take 1 capsule (80 mg total) by mouth daily 60 capsule 025 2024 Active busPIRone (BUSPAR) 5 mg tabletIndications :Generalized Anxiety Disorder Take 1 tablet (5 mg total) by mouth 3 (three) times a day 90 tablet 1 023 2024 Discontinued(P atient Reported) ergocalciferol (VITAMIN D) 50,000 unit capsuleIndication s:Vitamin D deficiency Take 1 capsule (50,000 Units total) by mouth once a week 12 capsule 4 024 2024 Discontinued(R eorder) cetirizine (ZyrTEC) 10 mg tabletIndications :Chronic Idiopathic Urticaria Take 1 tablet (10 mg total) by mouth 2 (two) times a day 60 tablet 11 024 2024 Discontinued(R eorder) famotidine (PEPCID) 20 mg tabletIndications :Chronic idiopathic urticaria Take 1 tablet (20 mg total) by mouth 2 (two) times a day 60 tablet 11 024 2024 Discontinued(R eorder) metFORMIN XR (GLUCOPHAGE XR) 500 mg 24 hr tablet TAKE 1 TABLET(500 MG) BY MOUTH TWICE DAILY WITH MEALS 90 tablet 1 024 2024 Discontinued albuterol HFA (PROVENTIL HFA,VENTOLIN HFA,PROAIR HFA) 90 mcg/actuation inhalerIndication s:Mild intermittent reactive airway disease without complication INHALE 2 PUFFS BY MOUTH EVERY 6 HOURS NEEDED FOR WHEEZING OR SHORTNESS OF BREATH 18 g 025 2024 Discontinued albuterol HFA (PROVENTIL HFA,VENTOLIN HFA,PROAIR HFA) 90 [...] at night Severe persistent asthma without complication Assessment & Plan (09/23/2024 3:40 PM CDT): Stable, well controlled, breathing well; no major side effects from medication Continue Advair Diskus 1 puff b.i.d. Fatigue 07/10/2023 Assessment & Plan (07/10/2023 2:28 PM STEELER): Increased fatigue; states that she can nap for hours; can drink energy drink and go straight to sleep Reactive airway disease with wheezing 05/30/2023 Assessment & Plan (05/31/2023 12:46 PM STEELER): Exacerbation with wheezing Restart singulair and advair Order for nebulizer and duoneb Nebulizer treatment given in office; patient expressed relief with treatment History of asthma in childhood which required nebulizer treatments. Menses, irregular 01/27/2023 RONNI (generalized anxiety disorder) 07/25/2022 Assessment & Plan (09/23/2024 3:40 PM CDT): Not well controlled; patient continues to have significant anxiety, worsening since recent illness and missed doses Continue clonazepam 1 mg b.i.d., will start Strattera 40 mg daily for 2 weeks, then increase to 80 mg daily Assessment & Plan (01/18/2024 1:19 PM CDT): Chronic, well controlled Continue Klonopin 1 mg BID and BuSpar 5 mg TID PRN Rarely uses BuSpar Assessment & Plan (07/10/2023 2:33 PM STEELER): Stable, well controlled Continue Konopin 1 mg bid prn and BuSpar 5 mg tid prn Has not taken BuSpar regularly Assessment & Plan (05/07/2023 5:20 PM STEELER): Stable, generally well controlled Continue Klonopin 1 [...] b.i.d. Assessment & Plan (08/31/2022 4:06 PM STEELER): Not well controlled; patient has been on 6 antidepressants in the past; no relief in worsening symptoms with bupropion 150 mg daily Given prior failures with SSRIs, SNRIs and atypical antidepressants; will start Klonopin 0.5 mg b.i.d. Assessment & Plan (07/25/2022 4:11 PM STEELER): Worsening anxiety, causing significant distress and triggering depression for patient Start bupropion 150 mg daily Irritable bowel syndrome with diarrhea 8 Assessment & Plan (09/23/2024 3:40 PM CDT): Stable not well controlled; acutely worsened secondary to acute anxiety Continue Lomotil, dicyclomine p.r.n. Assessment & Plan (01/18/2024 1:18 PM CDT): Chronic, stable, well controlled Continue Dicyclomine 10 mg QID and Lomotil on days she works Assessment & Plan (07/10/2023 2:37 PM STEELER): Stable, generally improving Continue dicyclomine 10 mg and Lomotil Assessment & Plan (10/06/2022 4:42 PM CDT): Mildly improving; has daily diarrhea but decreased frequency stool; patient reports fewer stomach cramps Fewer days of missed appointments Continue dicyclomine 10 mg q.i.d.; Lomotil Daily Assessment & Plan (08/31/2022 4:06 PM STEELER): Continues to have diarrhea; worsened today; follows with Endocrinology Continue Lomotil p.r.n. for diarrhea Encouraged patient to work towards low FODMAP diet; follow-up with Allergy immunology to evaluate for possible food allergies as exacerbations of current symptoms Assessment & Plan (07/25/2022 4:10 PM STEELER): Continues to have episodes of diarrhea, colonoscopy [...] sweats Assessment & Plan (05/15/2022 10:55 AM STEELER): Not well controlled, worsening; patient reports increased [...] exercise Assessment & Plan (07/10/2023 2:39 PM STEELER): Mild increase; still trying to focus on weight loss She is having increased fatigue that it is making it hard to exercise. Assessment & Plan (07/10/2023 2:38 PM STEELER): >>ASSESSMENT AND PLAN FOR CLASS 2 OBESITY [...] Encounters Date Type Department Care Team Description 09/23/2024 10:30 AM CDT Office Visit [facility] [address] [place] [phone] Daniel English MD RONNI (generalized anxiety disorder) (Primary Dx); Severe persistent asthma without complication (HCC); Irritable bowel syndrome with diarrhea 09/22/2024 9:35 AM CDT Lab [facility] [address] [place] [phone] PCOS (polycystic ovarian syndrome); Insulin resistance; Irregular menses 09/18/2024 Documentation [facility] Allergy and Immunology [address] [facility] Medical Office Building [address] [place] [address] Shonda Guallpa CMA 09/16/2024 9:25 AM CDT E-Visit [facility] Medical [facility] [employer] [facility] [address] [place] [phone] Megan Joiner NP E-Visit for Diarrhea 09/16/2024 Patient Self-Triage [facility] HealthCare/ Physicians [address] [place] [address] Mychart, Generic Provider 08/29/2024 Telephone [facility] Allergy and Immunology [address] [place] [phone] Yasmin Gutierrez 08/23/2024 9:10 AM STEELER E-Visit [facility] Medical [facility] [employer] [address] [phone] Ronel Duffy, MANAGER RELATIONSHIP E-Visit for Sinus 08/23/2024 Patient Self-Triage [facility] [address] [place] [phone] Mychart, Generic Provider 08/20/2024 8:50 AM STEELER E-Visit [facility] Care [address] [place] [phone] Reanna Eubanks, MANAGER RELATIONSHIP E-Visit for Diarrhea 08/20/2024 Patient Self-Triage [facility] [address] [place] [phone] Mychart, Generic Provider 07/28/2024 11:00 AM STEELER Therapy [facility] [address] [place] [address] Yamile Schwartz LCSW RONNI (generalized anxiety disorder) [F41.1] (Primary Dx) 07/23/2024 9:30 AM STEELER E-Visit [facility] Medical [facility] Care [address] [place] [phone] Megan Joiner MANAGER RELATIONSHIP E-Visit for Diarrhea 07/23/2024 Patient Self-Triage [facility] [address] [place] [phone] Mychart, Generic Provider 07/07/2024 11:00 AM STEELER [facility] [address] [place] [address] Yamile Schwartz LCSW RONNI (generalized anxiety disorder) [F41.1] (Primary Dx) 07/04/2024 Telephone [facility] [address] [phone] Daniel English MD Prednisone Clarification from Last 3 Months Immunizations Immunization Administration [...] 0.6 oz pur e alcohol) [facility] Utilities Answer Date Recorded In the past 12 months has th e electric, gas, oil, or water [employer] threatened to shut off services in your [...] How often do you attend chur or voodoo services? Never 07/10/2023 Do you belong to any clubs o r organizations such as jehovah's witness groups, unions, fraternal or athletic groups, or [...] more points, staff should administer the PHQ-9) 1 09/23/2024 [facility] Occupational Stress Questionnaire Answer [...] place to sleep or slept in a [place] health care facility (including now)? No 07/10/2023 Personal Safety Answer Date Recorded Getting School Help Needed Denies 06/16 Comments No Sex and Gender Information Value Date Recorded Sex Assigned at Not on file Legal Sex Female 1:33 PM STEELER Gender Identity Not on file Sexual Orientation Straight 03/09/2021 11 :40 PM CDT Occupation Industry Job Start Date Job End Date F[employer] at [employer] Not on file Not on file Not on file Obstetrics History Para Term AB IAB SAB Ectopic Multiple Livin g Live Births 0 0 0 0 0 0 0 0 0 0 0 Last Filed Vital Signs Vital Sign Reading Time Taken Comments Blood Pressure 124/84 09/23/2024 10:25 AM CDT Pulse 68 09/23/2024 10:25 AM CDT Temperature 36.8 C (98.3 F) 09/23/2024 10:25 AM CDT Respiratory Rate 16 09/23/2024 10:2 5 AM CDT Oxygen Saturation 98% 09/23/2024 10: 25 AM CDT room air Inhaled Oxygen Concentration - - Weight 87.9 kg (193 lb 12.8 oz) 025 10:25 AM CDT Height 154.9 cm (5' 1 ) 09/23/2024 10:2 5 AM CDT Body Mass Index 36.62 09/23/2024 10:25 AM CDT Plan of Treatment Health Maintenance Due Date Last Done Comments Varicella Vaccines (1 of 2 - 13+ 2-dose series) 2008 Covid-19 Vaccine (3 - 2023- season) 2024 04/03/2021, 03/13/2021 Influenza Vaccine (#1) 2024 07/20/2022 Pneumococcal vaccine <65 (2 of 2 - PCV) 09/26/2024 09/27/2023 Cervical Cancer Screening 01/27/20252023, 01/23/2023, 03/10/2021, Additional history exists Regular Well Visit/Exam 18-64 01/27/2025 01/28/2024, 01/18/2024, 01/23/2023, Additional history exists Depression Screening 09/23/2025 09/23/2024, 01/28/2024, 01/18/2024, Additional history exists DTaP/Tdap/Td Vaccine (9 - Td or Tdap) 01/18/2027 01/18/2017, 01/18/2017, 02/20/2006, Additional history exists Hepatitis B Screening Completed 03/07/2001 , 03/07/2001, 1995, Additional history exists Hepatitis C Screening Completed 07/13/2022 HPV Vaccines Aged Out No longer eligi ble based on patient's age to complete this topic Procedures Procedure Name Priority Date/Time Associated Diagnosis Comments EGFR Routine 09/22/2024 9:50 AM CDT PCOS (polycystic ovarian syndrome) Insulin resistance Irregular menses THYROID FUNCTION CASCADE Routine 09/22/2024 9:50 AM CDT PCOS (polycystic ovarian syndrome) Insulin resistance Irregular menses HEMOGLOBIN A1C Routine 09/22/2024 9:50 AM CDT PCOS (polycystic ovarian syndrome) Insulin resistance Irregular menses COMPREHENSIVE METABOLIC PANEL Routine 09/22/2024 9:50 AM CDT PCOS (polycystic ovarian syndrome) Insulin resistance Irregular menses INSULIN, TOTAL Routine 09/22/2024 9:50 AM CDT PCOS (polycystic ovarian syndrome) Insulin resistance Irregular menses HCG, BLOOD, QUANTITATIVE Routine 09/22/2024 9:50 AM CDT PCOS (polycystic ovarian syndrome) Insulin resistance Irregular menses PROGESTERONE Routine 09/22/2024 9:50 AM CDT PCOS (polycystic ovarian syndrome) Insulin resistance Irregular menses PROLACTIN Routine 09/22/2024 9:50 AM CDT PCOS (polycystic ovarian syndrome) Insulin resistance Irregular menses DHEA-SULFATE Routine 09/22/2024 9:50 AM CDT PCOS (polycystic ovarian syndrome) Insulin resistance Irregular menses TOTAL TESTOSTERONE Routine 09/22/2024 9: 50 AM CDT PCOS (polycystic ovarian syndrome) Insulin resistance Irregular menses FOLLICLE STIMULATING HORMONE Routine 09/22/2024 9:50 AM CDT PCOS (polycystic ovarian syndrome) Insulin resistance Irregular menses LUTEINIZING HORMONE (LH) Routine 09/22/2024 9:50 AM CDT PCOS (polycystic ovarian syndrome) Insulin resistance Irregular menses PAP, REFLEX HPV Routine 01/28/2024 3:45 PM CDT Well woman exam HEPATITIS PANEL, ACUTE Routine 3 3:08 PM STEELER Hepatic steatosis from Last 3 Months or Most Recently Relevant to Health Maintenance Results * eGFR (09/22/2024 9:50 AM CDT) eGFR >90 >=60 mL/min/1. 73 m2 Comment: [...] was last reviewed 2021. Testing performed by: [facility], [address] [place] [address]., [id number] Blood 09/22/2024 9:50 AM CDT 09/22/2024 12:41 PM CDT us Kristine Moura NP LAB BLOOD ORDERABLES Final Resul t Performing Organization Address [facility] Co de Phone Number [facility] [place] 1 [facility] Department [place] [address] * Thyroid Function [place] (09/22/2024 9:50 AM CDT) TSH 1.84 0.30 - 4.20 mcIUnit/mL Comment:Testing performed by : [facility], [address] [place] [address]., [id number] Blood 09/22/2024 9:50 AM CDT 09/22/2024 12:15 PM CDT us Kristine Moura NP LAB BLOOD ORDERABLES Final Resul t Performing Organization Address City/[facility] Co de Phone Number CHERYL BRANTLEY ([place]) 1 [facility] [place] [address] * Prolactin (09/22/2024 9:50 AM CDT) [facility] Prolactin 11.8 4.8 - 23.3 ng/mL Comment:Testing performed by : [facility], [address] [place] [address], [id number] Blood 09/22/2024 9:50 AM CDT 09/22/2024 12:15 PM CDT Kristine Moura NP LAB BLOOD ORDERABLES Final Resul t Performing Organization Address [facility] Co de Phone Number CHERYL BRANTLEY ([place]) [address] [place] [address] * Progesterone (09/22/2024 9:50 AM CDT) [facility] Progesterone 0.24 ng/mL Comment: Interpretive Data Males: <0.15 ng/mL Females: Follicular <0.20 ng/mL Ovulation <4.1 ng/mL Luteal 4.1 - 14.5 ng/mL 1st Trimester 11.0 - 44.0 ng/mL 2nd Trimester 25.0 - 83.0 ng/mL 3rd Trimester 59.0 - 214.0 ng/mL Postmenopausal <0.13 ng/mL Current interpretive data was last revised 2021. Testing performed by: [facility], [address] [facility] [place] [address] Blood 09/22/2024 9:50 AM CDT 09/22/2024 2:05 PM CDT us Kristine Moura NP LAB BLOOD ORDERABLES Final Resul t Performing Organization Address [facility] Co de Phone Number CHERYL BRANTLEY ([place]) 1 [facility] [place] [address] * (ABNORMAL) Insulin, total (09/22/2024 9:50 AM CDT) [facility] Insulin 52.0(H) 2.6 - 25.0 mcIUnit/mL Comment:Testing performed by : [facility], [address] [place]., [address] Blood 09/22/2024 9:50 AM CDT 09/22/2024 2:03 PM CDT Kristine Moura NP LAB BLOOD ORDERABLES Final Resul t Performing Organization Address City/[facility] Co de Phone Number CHERYL BRANTLEY ([place]) 1 [facility] [place] [address] * DHEA-sulfate (09/22/2024 9:50 AM CDT) [facility] DHEA-S 147.0 98.8 - 340.0 mcg/dL Comment:Testing performed by : [facility], [address] [place] [address], [id number] Blood 09/22/2024 9:50 AM CDT 09/22/2024 2:05 PM CDT Kristine Moura NP LAB BLOOD ORDERABLES Final Resul t Performing Organization Address City/[facility] Co de Phone Number CHERYL BRANT[facility] ([place]) [address] [place] [address] * hCG, blood, quantitative (09/22/2024 9:50 AM CDT) [facility] hCG, quant <0.1 0.0 - 5.0 IUnits/L Comment: Interpretive Data Male: < 5 IU/L Non- premenopausal Female: <5 IU/L [employer] hCG Beta Quant assay procedure was used. Results from different manufacturers or methods may not be comparable. Serial testing should be performed using the same method. Interpretive Data was last revised on 2023 Testing performed by: [facility], [address] [place] [address]., [id number] Blood 09/22/2024 9:50 AM CDT 09/22/2024 12:15 PM CDT us Kristine Moura NP LAB BLOOD ORDERABLES Final Resul t Performing Organization Address City/[facility]/ZIP Co de Phone Number CHERYL BRANTLEY ([place]) 1 [facility] [place] [address] * Total testosterone (09/22/2024 9:50 AM CDT) Testosterone 29 8 - 48 ng/dL Comment:Testing performed by : [facility], [address] [place] [address], [id number] Blood 09/22/2024 9:50 AM CDT 09/22/2024 12:15 PM CDT us Kristine Moura NP LAB BLOOD ORDERABLES Final Resul t Performing Organization Address [facility] de Phone Number CHERYL BRANTLEY ([place]) [address] [place] [address] * Hemoglobin A1c (09/22/2024 9:50 AM CDT) Hgb A1C 5.4 4.0 - 5.6 % Comment:Testing performed by : [address] [address] Estimated Average Glucose 108 mg/dL CHERYL BR[facility] ([place]) Comment: The ADA recommends reporting an estimated Average Glucose (eAG) with all Hemoglobin A1c results using the equation derived from a study of 507 normal and diabetic adults. Minority populations were underrepresented and children were not included. (Diabetes Care 31:9644-4332, 2008). The eAG is not equivalent to a fasting glucose. Testing performed by: [facility], [address] [place] [address]., [id number] Blood 09/22/2024 9:50 AM CDT 09/22/2024 12:15 PM CDT us Kristine Moura NP LAB BLOOD ORDERABLES Final Resul t Performing Organization Address City/[facility] Co de Phone Number CHERYL BRANTLEY ([place]) [address] [place] [address] * LH (09/22/2024 9:50 AM CDT) LH 14.5 IUnits/L Comment: Interpretive Data Males: Adults: 1.7 - 8.6 IUnits/L Females: Follicular: 2.4 - 12.6 IUnits/L Ovulation: 14.0 - 95.6 IUnits/L Luteal: 1.0 - 11.4 IUnits/L Postmenopausal: 7.7 - 58.5 IUnits/L Current interpretive data was last revised on 2018. Testing performed by: [facility], [address] [place] [address]., [id number] Blood 09/22/2024 9:50 AM CDT 09/22/2024 2:05 PM CDT Kristine Moura NP LAB BLOOD ORDERABLES Final Resul t CHERYL [facility] ([place]) [address] [place] [address] * Follicle stimulating hormone (09/22/2024 9:50 AM CDT) FSH 6.7 IUnits/L Comment: Interpretive Data Male: Adults: 1.5 - 12.4 IUnits/L Female: Follicular: 3.5 - 12.5 IUnits/L Ovulation: 4.7 - 21.5 IUnits/L Luteal: 1.7 - 7.7 IUnits/L Postmenopausal: 25.8 - 134.8 IUnits/L Current interpretive data was last revised 2015. Testing performed by: [facility], [address] [place]., [address] Blood 09/22/2024 9:50 AM CDT 09/22/2024 2:05 PM CDT Kristine Moura NP LAB BLOOD ORDERABLES Final Resul t CHERYL [facility] ([place]) 1 [facility] Department [place] [address] * (ABNORMAL) Comprehensive metabolic panel (09/22/2024 9:50 AM CDT) Sodium 143 135 - 145 mmol/L Comment:Testing performed by : [facility], [address] [place] [address]., [id number] Potassium, pl 4.0 3.3 - 4.9 mmol/L [facility] ([place]) Comment:Testing performed by : [facility], [address] [place] [address]., [address] Chloride 106 97 - 110 mmol/L [facility] ([place]) Comment:Testing performed by : [facility], [address] [place] [address]., [id number] CO2 24 22 - 32 mmol/L [facility] ([place]) Comment:Testing performed by : [address], [address] Anion gap 13 2 - 15 mmol/L [facility] ([place]) Comment:Testing performed by : [facility], [address] [place] [address]., [id number] BUN 9 6 - 25 mg/dL [facility] ([place]) Comment:Testing performed by : [address] [address] Creatinine 0.48(L) 0.60 - 1.10 mg/dL [facility] ([place]) Comment:Testing performed by : [address] [address] Glucose 126 70 - 199 mg/dL [facility] ([place]) Comment: Interpretive Data Fasting glucose [...] was last revised 2022. Testing performed by: [facility], [address] [place] [address]., [id number] Calcium 9.2 8.5 - 10.3 mg/dL [facility] ([place]) Comment:Testing performed by : [address] [address] Bilirubin, total 0.2 0.1 - 1.2 mg/dL [facility] ([place]) Comment:Testing performed by : [facility], [address] [place] [address], [id number] Protein, pl 6.9 6.5 - 8.5 g/dL [facility] ([place]) Comment:Testing performed by : [facility], [address] [place] [address], [address] Albumin 4.4 3.5 - 5.0 g/dL [facility] ([place]) Comment:Testing performed by : [address], [address] Alk phos 90 40 - 130 Units/L [facility] ([place]) Comment:Testing performed by : [address], [address] ALT 22 7 - 45 Units/L [facility] ([place]) Comment:Testing performed by : [facility], [address] [place] [address], [id number] AST 22 10 - 45 Units/L [facility] ([place]) Comment:Testing performed by : [address], [address] Blood 09/22/2024 9:50 AM CDT 09/22/2024 12:15 PM CDT Kristine Moura NP LAB BLOOD ORDERABLES Final Resul t [facility]L [facility] (EULOGIO) 1 [facility] [place] [address] * Pap, reflex HPV (01/28/2024 3:45 PM CDT) CLINICAL INFORMATION: [facility] DiagnosticsArchie Carlton Comment:Routine exam LMP [facility] Comment:[id number] Previous Pap [facility] Comment:None given Prev. Bx [facility] Comment:None given SOURCE: Mary DavidArchie Carlton Comment:Cervix, Endocervix Pap, specimen adequacy Mary Carlton Comment: Satisfactory for evaluation. Endocervical/transformation zone component present. HPV interp Mary Carlton Comment: Cytology Results: Negative for intraepithelial lesion or malignancy. COMMENTS Mary Carlton Comment: This Pap test has been evaluated with computer assisted technology. Veneer Stapler Darrell Malhotra Comment: BKA, CT(ASCP) CT screening location: [place] [address] Administration PATRICK Whipple [address] Review assistant brand manager Mary Carlton Comment: MVB, CT(ASCP) CT Screening Location: [place] [address] Administration PATRICK Whipple [address] Comment Mary Carlton Comment: EXPLANATORY NOTE: The [...] CDT 01/29/2024 4:54 AM CDT Kristine Moura MANAGER RELATIONSHIP LAB CYTOLOGY ORDERABLES Final Re sult [facility] [place] [address] [place] [address] * Hepatitis panel, acute (07/13/2022 3:08 PM STEELER) Hep A IgM Nonreactive Nonreactive [facility]L [facility] (EULOGIO) Comment: Interpretive Data: If Hep A IgM Ab is reported as Equivocal, a new sample should be drawn in two weeks for testing. Current interpretive data was last revised on 19. Testing performed by: [facility], [address] [place] [address]., [address] Hep B core IgM Nonreactive Nonreactive Cely DAVID [facility] (EULOGIO) Comment: Interpretive Data If HepB Core IgM Ab is reported as Equivocal, a new sample should be drawn in two weeks for testing. Current interpretive data was last revised on 19. Testing performed by: [facility], [address] [place] [address]., [address] Hep C Ab Nonreactive Nonreactive CHERYL BRANTLEY [...] last revised on 2019. Testing performed by: [facility], [address] [place] [address]., [address] HepBsAg Nonreactive Nonreactive CHERYL BRANTLEY (EULOGIO) Comment:Testing performed by : [facility], [address] [place] [address]., [address] Blood 07/13/2022 3:08 PM STEELER 07/13/2022 8:14 PM STEELER us Elke HER LAB MICROBIOLOGY - GENER AL ORDERABLES Final Result CHERYL KARON (EULOGIO) 1 [facility] [place] [address] from Last 3 Months or Most Recently Relevant to Health Maintenance Insurance [facility] Advance Directives For more information, please contact: [phone] * Full Code (Latest Code Status on File) Date Activated Date Inactivated Comments 08/29/2022 12:04 PM 08/29/2022 7:21 PM * Full Code Date Activated Date Inactivated Comments 08/29/2022 12:04 PM 08/29/2022 12:04 PM * Full Code Date Activated Date Inactivated Comments 07/18/2022 12:00 PM 07/18/2022 7:37 PM * Full Code Date Activated Date Inactivated Comments 07/18/2022 11:59 AM 07/18/2022 11:59 AM Care Teams Shellfish Shucker Relationship Specialty Start Date [place] [address] PCP - General 10/30/21
--- OUTSIDE RECORDS SUMMARY | 2024-09-26 11:31 | XMS_ITS | Referral Summary ---
Author Organization [facility] Address [address] [place] [address] Care Team Providers Care Tonal Regulator Name Role Phone Daniel English MD Primary Care Provider [phone] Encounters Date Type Department Care Team Description 09/23/2024 10:30 AM CDT Office Visit [facility] [address] [place] [address] Daniel English MD RONNI (generalized anxiety disorder) (Primary Dx); Severe persistent asthma without complication (HCC); Irritable bowel syndrome with diarrhea 09/22/2024 9:35 AM CDT Lab [facility] [address] [place] [address] PCOS (polycystic ovarian syndrome); Insulin resistance; Irregular menses 09/18/2024 Documentation [facility] Allergy and Immunology [address] [facility] [address] [place] [address] Shonda Guallpa CMA 09/16/2024 9:25 AM CDT E-Visit [facility] Virtual Care [address] [place] [address] Megan Joiner NP E-Visit for Diarrhea 09/16/2024 Patient Self-Triage [facility] [address] [place] [address] Mychart, Generic Provider 08/29/2024 Telephone [facility] Allergy and Immunology [address] [place] [address] [address] [place] [address] Yasmin Gutierrez 08/23/2024 9:10 AM SIGNAL CONSTRUCTOR E-Visit [facility] Medical [facility] Care [address] [place] [phone] Ronel Duffy, MANAGER PHARMACEUTICAL E-Visit for Sinus 08/23/2024 Patient Self-Triage [facility] [address] [place] [address] Mychart, Generic Provider 08/20/2024 8:50 AM SIGNAL CONSTRUCTOR E-Visit [facility] Care [address] [place] [phone] Reanna Eubanks, GRACIELA E-Visit for Diarrhea 08/20/2024 Patient Self-Triage [facility] Health[facility]/ Physicians [address] [place] [address] Mychart, Generic Provider 07/28/2024 11:00 AM SIGNAL CONSTRUCTOR Therapy [facility] Off [facility] [address] [place] [address] Yamile Schwartz LCSW RONNI (generalized anxiety disorder) [F41.1] (Primary Dx) 07/23/2024 9:30 AM SIGNAL CONSTRUCTOR E-Visit [address] [phone] Megan Joiner NP E-Visit for Diarrhea 07/23/2024 Patient Self-Triage [facility]/ Physicians [address] [place] [phone] Mychart, Generic Provider 07/07/2024 11:00 AM SIGNAL CONSTRUCTOR [facility] Warm Hand Off Program [address] [place] [address] Yamile Schwartz LCSW RONNI (generalized anxiety disorder) [F41.1] (Primary Dx) 07/04/2024 Telephone [facility] [address] [address] Daniel English MD Prednisone Clarification from Last 3 Months Allergies Active Allergy [...] as needed for cough 120 mL Active Additional Information Patient not taking.Reported on [...] nausea or vomiting 9 tablet 025 Active Additional Information Patient not taking.Reported on [...] nausea or vomiting 20 tablet 025 Active ergocalciferol (VITAMIN D) 50,000 unit capsuleIndication s:Vitamin D deficiency Take 1 capsule (50,000 Units total) by mouth once a week 12 capsule 3 025 2025 Active cetirizine (ZyrTEC) 10 mg tabletIndications :Chronic Idiopathic Urticaria Take 1 tablet (10 mg total) by mouth 2 (two) times a day 60 tablet 3 025 Active metFORMIN XR (GLUCOPHAGE XR) 500 mg [...] 07/10/2023 Assessment & Plan (07/10/2023 2:28 PM SIGNAL CONSTRUCTOR): Increased fatigue; states that she can nap for hours; can drink energy drink and go straight to sleep Reactive airway disease with wheezing 05/30/2023 Assessment & Plan (05/31/2023 12:46 PM SIGNAL CONSTRUCTOR): Exacerbation with wheezing Restart singulair and advair [...] BuSpar Assessment & Plan (07/10/2023 2:33 PM SIGNAL CONSTRUCTOR): Stable, well controlled Continue Konopin 1 mg bid prn and BuSpar 5 mg tid prn Has not taken BuSpar regularly Assessment & Plan (05/07/2023 5:20 PM SIGNAL CONSTRUCTOR): Stable, generally well controlled Continue Klonopin 1 [...] b.i.d. Assessment & Plan (08/31/2022 4:06 PM SIGNAL CONSTRUCTOR): Not well controlled; patient has been on 6 antidepressants in the past; no relief in worsening symptoms with bupropion 150 mg daily Given prior failures with SSRIs, SNRIs and atypical antidepressants; will start Klonopin 0.5 mg b.i.d. Assessment & Plan (07/25/2022 4:11 PM SIGNAL CONSTRUCTOR): Worsening anxiety, causing significant distress and triggering [...] works Assessment & Plan (07/10/2023 2:37 PM SIGNAL CONSTRUCTOR): Stable, generally improving Continue dicyclomine 10 mg and Lomotil Assessment & Plan (10/06/2022 4:42 PM CDT): Mildly improving; has daily diarrhea but decreased frequency stool; patient reports fewer stomach cramps Fewer days of missed appointments Continue dicyclomine 10 mg q.i.d.; Lomotil Daily Assessment & Plan (08/31/2022 4:06 PM SIGNAL CONSTRUCTOR): Continues to have diarrhea; worsened today; follows with Endocrinology Continue Lomotil p.r.n. for diarrhea Encouraged patient to work towards low FODMAP diet; follow-up with Allergy immunology to evaluate for possible food allergies as exacerbations of current symptoms Assessment & Plan (07/25/2022 4:10 PM SIGNAL CONSTRUCTOR): Continues to have episodes of diarrhea, colonoscopy [...] sweats Assessment & Plan (05/15/2022 10:55 AM SIGNAL CONSTRUCTOR): Not well controlled, worsening; patient reports increased [...] exercise Assessment & Plan (07/10/2023 2:39 PM SIGNAL CONSTRUCTOR): Mild increase; still trying to focus on weight loss She is having increased fatigue that it is making it hard to exercise. Assessment & Plan (07/10/2023 2:38 PM SIGNAL CONSTRUCTOR): >>ASSESSMENT AND PLAN FOR CLASS 2 OBESITY [...] drink = 0.6 oz pur e alcohol) [facility] [employer] ([email or web address])ities Answer Date Recorded In the past 12 months has e [employer], gas, oil, or water [employer] threatened to shut off services in your [...] often do you attend chur ch or gnosticist services? Never 07/10/2023 Do you belong to any clubs o r organizations such as adventist groups, unions, fraternal or athletic groups, or [...] staff should administer the PHQ-9) 1 09/23/2024 [facility] of Occupat ional [facility] - Occupational Stress Questionnaire Answer Date Recorded [...] place to sleep or slept in a retirement (including now)? 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 Testing performed by: [facility], [address] [place] [address], [place]., [address] Blood 09/22/2024 9:50 AM CDT 09/22/2024 12:41 PM CDT Kristine Moura MANAGER PHARMACEUTICAL LAB BLOOD ORDERABLES Final Resul t CERNER [facility] WARSAW) 4 [facility] Department [place] [address] * Thyroid Function Moore (09/22/2024 9:50 AM CDT) TSH 1.84 0.30 - 4.20 mcIUnit/mL Comment:Testing performed by : [facility], [address] [place] [address]., [address] Blood 09/22/2024 9:50 AM CDT 09/22/2024 12:15 PM CDT us Kristine Moura NP LAB BLOOD ORDERABLES Final Resul t CHERYL BRANTLEY (WARSAW) 1 [facility] [place] [address] * Prolactin (09/22/2024 9:50 AM CDT) Prolactin 11.8 4.8 - 23.3 ng/mL Comment:Testing performed by : [facility], [address] [place] [address], [address] Blood 09/22/2024 9:50 AM CDT 09/22/2024 12:15 PM CDT us Kristine Moura NP LAB BLOOD ORDERABLES Final Resul t Performing Organization Address [facility] Co de Phone Number CHERYL BRANTLEY (WARSAW) 1 [facility] [place] [address] * Progesterone (09/22/2024 9:50 AM CDT) Progesterone 0.24 ng/mL Comment: Interpretive Data Males: <0.15 ng/mL Females: Follicular <0.20 ng/mL Ovulation <4.1 ng/mL Luteal 4.1 - 14.5 ng/mL 1st Trimester 11.0 - 44.0 ng/mL 2nd Trimester 25.0 - 83.0 ng/mL 3rd Trimester 59.0 - 214.0 ng/mL Postmenopausal <0.13 ng/mL Current interpretive data was last revised 2021. Testing performed by: [facility], [address] [place]., [address] Blood 09/22/2024 9:50 AM CDT 09/22/2024 2:05 PM CDT us Kristine Moura NP LAB BLOOD ORDERABLES Final Resul t CHERYL BRANTLEY (WARSAW) 1 [facility] [place] [address] * (ABNORMAL) Insulin, total (09/22/2024 9:50 AM CDT) Pathologist [facility] Insulin 52.0(H) 2.6 - 25.0 mcIUnit/mL Comment:Testing performed by : [facility], [address] [place] [address]., [address] Blood 09/22/2024 9:50 AM CDT 09/22/2024 2:03 PM CDT Kristine Moura NP LAB BLOOD ORDERABLES Final Resul t Performing Organization Address City/[facility]/ZIP Co de Phone Number CHERYL BRANTLEY (WARSAW) 1 [facility] [place] [address] * DHEA-sulfate (09/22/2024 9:50 AM CDT) [facility] DHEA-S 147.0 98.8 - 340.0 mcg/dL Comment:Testing performed by : [facility], [address] [place] [address], [address] Blood 09/22/2024 9:50 AM CDT 09/22/2024 2:05 PM CDT Kristine Moura NP LAB BLOOD ORDERABLES Final Resul t Performing Organization Address City/[facility]/ZIP Co de Phone Number CHERYL BRANTLEY (WARSAW) [address] [place] [address] [place] [address] * hCG, blood, quantitative (09/22/2024 9:50 AM CDT) Pathologist [facility] hCG, quant <0.1 0.0 - 5.0 IUnits/L Comment: Interpretive Data Male: < 5 IU/L Non- premenopausal Female: <5 IU/L [employer] hCG Beta Quant assay procedure was used. Results from different manufacturers or methods may not be comparable. Serial testing should be performed using the same method. Interpretive Data was last revised on 2023 Testing performed by: [facility], [address] [place] [address], [address] Blood 09/22/2024 9:50 AM CDT 09/22/2024 12:15 PM CDT us Kristine Moura NP LAB BLOOD ORDERABLES Final Resul t CHERYL BRANTLEY (WARSAW) 1 [facility] [place] [address] * Total testosterone (09/22/2024 9:50 AM CDT) Testosterone 29 8 - 48 ng/dL Comment:Testing performed by : [address], [address] Blood 09/22/2024 9:50 AM CDT 09/22/2024 12:15 PM CDT us Kristine Moura NP LAB BLOOD ORDERABLES Final Resul t Performing Organization Address [facility] Co de Phone Number CHERYL BRANTLEY (WARSAW) 1 [place] [address] * Hemoglobin A1c (09/22/2024 9:50 AM CDT) Pathologist [facility] Hgb A1C 5.4 4.0 - 5.6 % Comment:Testing performed by : [address], [address] Estimated Average Glucose 108 mg/dL BRADBILLY BRANTLEY (WARSAW) Comment: The ADA recommends reporting an estimated Average Glucose (eAG) with all Hemoglobin A1c results using the equation derived from a study of 507 normal and diabetic adults. Minority populations were underrepresented and children were not included. (Diabetes Care 31:4029-6626, 2008). The eAG is not equivalent to a fasting glucose. Testing performed by: [address], [address] Blood 09/22/2024 9:50 AM CDT 09/22/2024 12:15 PM CDT us Kristine Moura NP LAB BLOOD ORDERABLES Final Resul t Performing Organization Address City/[facility]/ZIP Co de Phone Number CHERYL BRANTLEY (EULOGIO) 1 [facility] [place] [address] * LH (09/22/2024 9:50 AM CDT) LH 14.5 IUnits/L Comment: Interpretive Data Males: Adults: 1.7 - 8.6 IUnits/L Females: Follicular: 2.4 - 12.6 IUnits/L Ovulation: 14.0 - 95.6 IUnits/L Luteal: 1.0 - 11.4 IUnits/L Postmenopausal: 7.7 - 58.5 IUnits/L Current interpretive data was last revised on 2018. Testing performed by: [facility], [address] [place] [address]., [address] Blood 09/22/2024 9:50 AM CDT 09/22/2024 2:05 PM CDT Kristine Moura MANAGER PHARMACEUTICAL LAB BLOOD ORDERABLES Final Resul t Performing Organization Address [facility] Co de Phone Number CHERYL BRANTLEY (WARSAW) 1 [facility] [place] [address] * Follicle stimulating hormone (09/22/2024 9:50 AM CDT) FSH 6.7 IUnits/L Comment: Interpretive Data Male: Adults: 1.5 - 12.4 IUnits/L Female: Follicular: 3.5 - 12.5 IUnits/L Ovulation: 4.7 - 21.5 IUnits/L Luteal: 1.7 - 7.7 IUnits/L Postmenopausal: 25.8 - 134.8 IUnits/L Current interpretive data was last revised 2015. Testing performed by: [facility], [address] [place] [address]., [address] Blood 09/22/2024 9:50 AM CDT 09/22/2024 2:05 PM CDT us Kristine Moura NP LAB BLOOD ORDERABLES Final Resul t CHERYL [facility] (WARSAW) 1 [facility] Department [place] [address] * (ABNORMAL) Comprehensive metabolic panel (09/22/2024 9:50 AM CDT) Sodium 143 135 - 145 mmol/L Comment:Testing performed by : [facility], [address] [place] [address]., [address] Potassium, pl 4.0 3.3 - 4.9 mmol/L CHERYL [facility] (EULOGIO) Comment:Testing performed by : [facility], [address] [place] [address], [address] Chloride 106 97 - 110 mmol/L [facility] (EULOGIO) Comment:Testing performed by : [facility], [address] [place] [address], [address] CO2 24 22 - 32 mmol/L CHERYL [facility] (EULOGIO) Comment:Testing performed by : [facility], [address] [place] [address], [address] Anion gap 13 2 - 15 mmol/L [facility] (EULOGIO) Comment:Testing performed by : [facility], [address] [place] [address]., [address] BUN 9 6 - 25 mg/dL [facility] AM[facility] (EULOGIO) Comment:Testing performed by : [address], [address] Creatinine 0.48(L) 0.60 - 1.10 mg/dL [facility] (EULOGIO) Comment:Testing performed by : [address], [address] Glucose 126 70 - 199 mg/dL [facility] (EULOGIO) Comment: Interpretive Data Fasting glucose >/= [...] was last revised 2022. Testing performed by: [facility], [address] [place] [address]., [address] Calcium 9.2 8.5 - 10.3 mg/dL C[facility]ER [facility] (EULOGIO) Comment:Testing performed by : [address], [address] Bilirubin, total 0.2 0.1 - 1.2 mg/dL [facility] (EULOGIO) Comment:Testing performed by : [facility], [address] [place] [address], [address] Protein, pl 6.9 6.5 - 8.5 g/dL [facility] (EULOGIO) Comment:Testing performed by : [facility], [address] [place] [address], [address] Albumin 4.4 3.5 - 5.0 g/dL [facility] (EULOGIO) Comment:Testing performed by : [address], [address] Alk phos 90 40 - 130 Units/L [facility] (EULOGIO) Comment:Testing performed by : [facility], [address] [place] [address], [address] ALT 22 7 - 45 Units/L [facility] (EULOGIO) Comment:Testing performed by : [address], [address] AST 22 10 - 45 Units/L [facility] (EULOGIO) Comment:Testing performed by : [address], [address] Blood 09/22/2024 9:50 AM CDT 09/22/2024 12:15 PM CDT us Kristine Moura NP LAB BLOOD ORDERABLES Final Resul t CHERYL [facility] (EULOGIO) 1 [facility] Department [place] [address] * Pap, reflex HPV (01/28/2024 3:45 PM CDT) CLINICAL INFORMATION: Amy Carlton Comment:Routine exam LMP [facility] Carl[facility] Comment:[id number] Previous Pap Amy HernandezWaleskaSavana isaac Barndt Comment:None given Prev. Bx Amy DavidArchie Carlton Comment:None given SOURCE: Amy DavidArchie Carlton Comment:Cervix, Endocervix Pap, specimen adequacy Amy Carlton Comment: Satisfactory for evaluation. Endocervical/transformation zone component present. HPV interp Amy Carlton Comment: Cytology Results: Negative for intraepithelial lesion or malignancy. COMMENTS Amy HernandezArchie Carlton Comment: This Pap test has been evaluated with computer assisted technology. Training Assistant Darrell Malhotra Comment: BKA, CT(ASCP) CT screening location: [place] [address] [address] [address] Review university relations director Amy Carlton Comment: MVB, CT(ASCP) CT Screening Location: [place] [address] Administration [place] [place] [address] Comment Amy Carlton Comment: EXPLANATORY NOTE: The [...] CDT 01/29/2024 4:54 AM CDT Kristine Moura NP LAB CYTOLOGY ORDERABLES Final Re sult MAY Amy TapCrowdSage Carlton [facility] [place] [address] * Hepatitis panel, acute (07/13/2022 3:08 PM SIGNAL CONSTRUCTOR) Hep A IgM Nonreactive Nonreactive CHERYL BRANTLEY (EULOGIO) Comment: Interpretive Data: If Hep A IgM Ab is reported as Equivocal, a new sample should be drawn in two weeks for testing. Current interpretive data was last revised on 19. Testing performed by: [facility], [address] [place] [address], [place]., [address] Hep B core IgM Nonreactive Nonreactive Cely BRANTLEY (EULOGIO) Comment: Interpretive Data If HepB Core IgM Ab is reported as Equivocal, a new sample should be drawn in two weeks for testing. Current interpretive data was last revised on 19. Testing performed by: [address] [address] Hep C Ab Nonreactive Nonreactive CHERYL BRANTLEY [...] last revised on 2019. Testing performed by: [facility], [address] [place] [address]., [address] HepBsAg Nonreactive Nonreactive CHERYL BRANTLEY (EULOGIO) Comment:Testing performed by : [address] [address] Blood 07/13/2022 3:08 PM SIGNAL CONSTRUCTOR 07/13/2022 8:14 PM SIGNAL CONSTRUCTOR Elke HER LAB MICROBIOLOGY - GENER AL ORDERABLES Final Result CHERYL BRANTLEY (WARSAW) 1 [facility] [place] [address] from Last 3 Months or Most Recently Relevant to Health Maintenance Insurance [facility] Advance Directives For more information, please contact: [phone] * Full Code (Latest Code Status on File) Date Activated Date Inactivated Comments 08/29/2022 12:04 PM 08/29/2022 7:21 PM * Full Code Date Activated Date Inactivated Comments 08/29/2022 12:04 PM 08/29/2022 12:04 PM * Full Code Date Activated Date Inactivated Comments 07/18/2022 12:00 PM 07/18/2022 7:37 PM * Full Code Date Activated Date Inactivated Comments 07/18/2022 11:59 AM 07/18/2022 11:59 AM Care Teams Tonal Regulator Relationship Specialty Start Date End Date Daniel English MD [address] [place] [address] PCP - General 10/30/21
== END 2024-09-26 11:19 | disposition home or self-care (01) ==
PROVIDERS: Emergency Provider Nurse Practitioner Family; PCP Hospitalist
DX: J40 Bronchitis, not specified as acute or chronic (principal); Z20.822 Contact with and (suspected) exposure to COVID-19; J45.909 Unspecified asthma, uncomplicated
CPT/HCPCS: 87081; 87426; 87804; 87880; 99213; G0463